=== PATIENT | female | born 1940 | race African-American/Black ===

== ENCOUNTER → 2017-06-26 | Outpatient (CLI) | payer MEDICARE | END | disposition home or self-care (01) | LOC: LABWHC1 17:31 | PROVIDERS: ATTEND Physician Assistant | DX: R00.1 Bradycardia, unspecified (principal); R07.9 Chest pain, unspecified | CPT/HCPCS: 36415; 93005 ==

== ENCOUNTER → 2017-12-17 | Outpatient (CLI) | payer MEDICARE ==
[2017-12-17 19:14] LABS: T4, Free (Free Thyroxine) 1.93 ng/dL (0.78-2.19)
[2017-12-18 01:27] LABS: Protein, Total 7.5 g/dL (6.2-8.2)
[2017-12-18 10:02] LABS: Lyme IgG/IgM 0.2 Index
[2017-12-18 12:29] LABS: Albumin 4.67 g/dL (3.80-4.90); Gamma Globulin 1.12 g/dL (0.70-1.50)
[2017-12-18 17:07] LABS: Hemoglobin A1C 5.4 % (4.0-6.0)
== END | disposition home or self-care (01) ==
LOC: LABMAIN 17:35
PROVIDERS: ATTEND Psychiatry & Neurology Neurology
DX: M19.90 Unspecified osteoarthritis, unspecified site (principal); R53.82 Chronic fatigue, unspecified; G62.9 Polyneuropathy, unspecified; E07.9 Disorder of thyroid, unspecified
CPT/HCPCS: 36415; 82607; 82747; 83036; 84165; 84207; 84439; 84443; 85652; 86334; 86618

== ENCOUNTER → 2018-11-19 | Outpatient (CLI) | payer MEDICARE ==
[2018-11-19 17:45] LABS: Basophils # (A) 0.1 k/uL (0-0.2); Basophils % (A) 1 %; Eosinophils # (A) 0.1 k/uL (0-0.7); Eosinophils % (A) 1 %; HCT 42.9 % (34.0-46.0); HGB 14.5 gm/dL (11.4-16.0); Lymphocytes % (A) 19 %; MCH 30.3 pg (25.0-35.0); MCHC 33.7 g/dL (31.0-37.0); MCV 89.7 fL (80.0-100.0); Mean Platelet Volume 9.3; Monocytes # (A) 0.2 k/uL (0-1.0); Monocytes % (A) 4 %; Neutrophils # (A) 3.8 k/uL (1.3-7.7); Neutrophils % (A) 73 %; Platelet Count 283 k/uL (150-450); RBC 4.78 m/uL (3.80-5.40); WBC 5.2 k/uL (3.8-10.6)
[2018-11-19 18:05] LABS: Appearance,Urine Clear (Clear); Bilirubin,Urine Negative (Negative); Blood,Urine Negative (Negative); Color,Urine Light Yellow; Glucose,Urine (UA) Negative (Negative); Ketones,Urine Negative (Negative); Leukocyte Esterase,Urine Negative (Negative); Nitrite,Urine Negative (Negative); Protein,Urine Negative (Negative); Specific Gravity,Urine 1.009 (1.001-1.035); Urobilinogen,Urine <2.0 mg/dL (<2.0)
[2018-11-19 23:39] LABS: Iron Saturation 15.08 (12.00-45.00)
[2018-11-19 23:51] LABS: African American GFR (CKD) 50.8 (60.0-200.0); Albumin 4.6 g/dL (3.80-4.90); Anion Gap 9.2 mmol/L (4.00-12.00); BUN/Creat Ratio 16.67 Ratio (12.00-20.00); Calcium 9.6 mg/dL (8.7-10.3); Carbon Dioxide 28.8 mmol/L (21.6-31.8); Magnesium 2.2 mg/dL (1.5-2.4); Parathyroid Hormone Intact 110.5 pg/mL (14.0-72.0); Phosphorus 4.5 mg/dL (2.4-5.1); Potassium 3.9 mmol/L (3.5-5.5); Uric Acid 5.9 mg/dL (2.9-7.7)
[2018-11-20 00:13] LABS: Creatinine,Urine Random 57.9 mg/dL
[2018-11-20 00:28] LABS: Total Protein,Urine Random 7.5 mg/dL (0.0-13.5)
== END | disposition home or self-care (01) ==
LOC: LABWHC1 17:24
PROVIDERS: ATTEND Internal Medicine
DX: N39.0 Urinary tract infection, site not specified (principal); M10.9 Gout, unspecified; N18.3 Chronic kidney disease, stage 3 (moderate); D63.1 Anemia in chronic kidney disease; R80.9 Proteinuria, unspecified; N25.81 Secondary hyperparathyroidism of renal origin
CPT/HCPCS: 36415; 80048; 81003; 82040; 82570; 82728; 83540; 83550; 83735; 83970; 84100; 84156; 84550; 85025

== ENCOUNTER → 2019-02-09 | Outpatient (CLI) | payer MEDICARE ==
--- NOTE | 2019-02-10 12:42 | MR ---
MR brain without contrast HISTORY: Syncope, nutritional imbalance Multiplanar multisequence imaging through the brain Correlation to prior brain MRI January 01, 2015 Periventricular confluent and scattered hyperintensities on inversion recovery T2-weighted sequences are again noted and show similar appearance and distribution, similar number. The pericallosal hyperi ntensities have increased in size, right frontal lesion shows a measurement approximately 7.5 mm on a xial image 22 and measured approximately 5.5 mm on prior exam. Left frontal lesion measures approxima tely 6.6 mm currently and on prior exam measured only approximately 5 mm. There are some sub and juxt acortical lesions which also appears somewhat more conspicuous. There is cortical atrophy which is li abdi age-related. Motion is present on the exam. Inflammatory changes present within the temporal bon e on the left, mastoids on the right as on prior exam. No hemorrhage or hydrocephalus. There are norm al vascular flow voids. Mild inflammatory change present in the ethmoid air cells. Orbits show symmet bryson appearance. Cerebellopontine angles, corpus callosum, cervical medullary junction are unremarkabl e. There is a partially empty sella as on prior exam. IMPRESSION: Age-related atrophy and chronic small vessel ischemia. Some progression in white matter d emyelination as described.
== END | disposition home or self-care (01) ==
LOC: RADMRIMAIN 15:11
PROVIDERS: ATTEND Psychiatry & Neurology Neurology
DX: G31.1 Senile degeneration of brain, not elsewhere classified (principal); G37.9 Demyelinating disease of central nervous system, unspecified; I67.82 Cerebral ischemia
CPT/HCPCS: 70551

== ENCOUNTER → 2019-05-04 | Outpatient (CLI) | payer MEDICARE | END | disposition home or self-care (01) | LOC: NEUROMAIN 08:58 | PROVIDERS: ATTEND Psychiatry & Neurology Neurology | DX: R42 Dizziness and giddiness (principal) | CPT/HCPCS: 92537; 92540 ==

== ENCOUNTER → 2019-05-24 | Outpatient (CLI) | payer MEDICARE ==
[2019-05-24 14:42] LABS: Basophils # (A) 0.1 k/uL (0-0.2); Basophils % (A) 1 %; Eosinophils # (A) 0.1 k/uL (0-0.7); Eosinophils % (A) 1 %; HCT 40.4 % (34.0-46.0); HGB 12.3 gm/dL (11.4-16.0); Lymphocytes # (A) 0.9 k/uL (1.0-4.8); Lymphocytes % (A) 14 %; MCH 30.6 pg (25.0-35.0); MCHC 30.5 g/dL (31.0-37.0); MCV 100.3 fL (80.0-100.0); Macrocytosis Slight; Mean Platelet Volume 7.5; Monocytes # (A) 0.2 k/uL (0-1.0); Monocytes % (A) 4 %; Neutrophils % (A) 79 %; Platelet Count 388 k/uL (150-450); RBC 4.02 m/uL (3.80-5.40); RDW 13.9 % (11.5-15.5); WBC 6.3 k/uL (3.8-10.6)
[2019-05-24 15:08] LABS: Appearance,Urine Cloudy (Clear); Bacteria,Urine Many /hpf; Bilirubin,Urine Negative (Negative); Blood,Urine Trace (Negative); Color,Urine Yellow; Glucose,Urine (UA) Negative (Negative); Ketones,Urine Negative (Negative); Leukocyte Esterase,Urine Large (Negative); Mucus,Urine Rare /hpf; Nitrite,Urine Negative (Negative); Protein,Urine Trace (Negative); RBC,Urine 7 /hpf (0-5); Specific Gravity,Urine 1.007 (1.001-1.035); Squamous Epithelial Cell,Urine <1 /hpf (0-4); Urobilinogen,Urine <2.0 mg/dL (<2.0); WBC,Urine >182 /hpf (0-5)
[2019-05-24 19:43] LABS: African American GFR (CKD) 33.4 (60.0-200.0); Albumin 4.1 g/dL (3.80-4.90); Anion Gap 8.5 mmol/L (4.00-12.00); BUN/Creat Ratio 12.35 Ratio (12.00-20.00); Carbon Dioxide 27.5 mmol/L (21.6-31.8); Phosphorus 3.5 mg/dL (2.4-5.1); Potassium 4.1 mmol/L (3.5-5.5); Uric Acid 6.4 mg/dL (2.9-7.7)
[2019-05-24 19:48] LABS: Ferritin 195.7 ng/mL (10.0-291.0); Vitamin D 25 Hydroxy 38.6 ng/mL (30.0-100.0)
[2019-05-24 22:35] LABS: Creatinine,Urine Random 56.8 mg/dL
[2019-05-24 22:39] LABS: Total Protein,Urine Random 21.8 mg/dL (0.0-13.5)
== END | disposition home or self-care (01) ==
LOC: LABWHC1 13:53
PROVIDERS: ATTEND Internal Medicine Nephrology
DX: N18.3 Chronic kidney disease, stage 3 (moderate) (principal)
CPT/HCPCS: 36415; 80048; 81001; 82040; 82306; 82570; 82728; 83540; 83550; 83735; 83970; 84100; 84156; 84550; 85025

== ENCOUNTER → 2019-07-07 | Outpatient (CLI) | payer MEDICARE ==
[2019-07-08 01:21] LABS: African American GFR (CKD) 38.5 (60.0-200.0); Anion Gap 7.4 mmol/L (4.00-12.00); BUN/Creat Ratio 15.33 Ratio (12.00-20.00); Calcium 9.3 mg/dL (8.7-10.3); Carbon Dioxide 29.6 mmol/L (21.6-31.8); Non-African American GFR(CKD) 33.3 (60.0-200.0); Potassium 3.8 mmol/L (3.5-5.5)
== END | disposition home or self-care (01) ==
LOC: LABWHC1 16:10
PROVIDERS: ATTEND Internal Medicine Nephrology
DX: N18.3 Chronic kidney disease, stage 3 (moderate) (principal)
CPT/HCPCS: 36415; 80048

== ENCOUNTER → 2019-07-30 | Outpatient (CLI) | payer MEDICARE | END | disposition home or self-care (01) | LOC: LABWHC1 12:00 | PROVIDERS: ATTEND Internal Medicine | DX: Z53.9 Procedure and treatment not carried out, unspecified reason (principal) | CPT/HCPCS: 36415; 80053; 84439; 84443 ==

== ENCOUNTER → 2019-08-03 | Outpatient (CLI) | payer MEDICARE ==
[2019-08-04 00:20] LABS: T4, Free (Free Thyroxine) 1.5 ng/dL (0.80-1.80)
[2019-08-04 01:03] LABS: African American GFR (CKD) 35.7 (60.0-200.0); Albumin 4.2 g/dL (3.80-4.90); Anion Gap 5.7 mmol/L (4.00-12.00); BUN/Creat Ratio 13.75 Ratio (12.00-20.00); Carbon Dioxide 29.3 mmol/L (21.6-31.8); Globulin 2.1 g/dL (1.6-3.3); Non-African American GFR(CKD) 30.8 (60.0-200.0); Potassium 4.2 mmol/L (3.5-5.5); Total Bilirubin 0.5 mg/dL (0.3-1.2); Total Protein 6.3 g/dL (6.2-8.2)
== END | disposition home or self-care (01) ==
LOC: LABWHC1 17:23
PROVIDERS: ATTEND Internal Medicine
DX: I10 Essential (primary) hypertension (principal)
CPT/HCPCS: 36415; 80053; 84439; 84443

== ENCOUNTER → 2019-08-15 | Outpatient (CLI) | payer MEDICARE ==
[2019-08-16 00:28] LABS: African American GFR (CKD) 38.5 (60.0-200.0); Anion Gap 6.4 mmol/L (4.00-12.00); BUN/Creat Ratio 13.33 Ratio (12.00-20.00); Calcium 9.3 mg/dL (8.7-10.3); Carbon Dioxide 29.6 mmol/L (21.6-31.8); Non-African American GFR(CKD) 33.3 (60.0-200.0); Potassium 4.1 mmol/L (3.5-5.5)
== END | disposition home or self-care (01) ==
LOC: LABWHC1 17:15
PROVIDERS: ATTEND Internal Medicine
DX: I10 Essential (primary) hypertension (principal)
CPT/HCPCS: 36415; 80048

== ENCOUNTER → 2019-09-05 | Outpatient (CLI) | payer MEDICARE ==
[2019-09-05 17:32] LABS: Basophils # (A) 0.1 k/uL (0-0.2); Basophils % (A) 1 %; Eosinophils # (A) 0.1 k/uL (0-0.7); Eosinophils % (A) 3 %; HCT 41.3 % (34.0-46.0); HGB 13.1 gm/dL (11.4-16.0); Lymphocytes # (A) 1.4 k/uL (1.0-4.8); Lymphocytes % (A) 26 %; MCHC 31.7 g/dL (31.0-37.0); MCV 97.8 fL (80.0-100.0); Mean Platelet Volume 9.1; Monocytes # (A) 0.3 k/uL (0-1.0); Monocytes % (A) 5 %; Neutrophils # (A) 3.3 k/uL (1.3-7.7); Neutrophils % (A) 63 %; Platelet Count 194 k/uL (150-450); RBC 4.22 m/uL (3.80-5.40); RDW 13.9 % (11.5-15.5); WBC 5.3 k/uL (3.8-10.6)
[2019-09-05 17:35] LABS: Appearance,Urine Clear (Clear); Bilirubin,Urine Negative (Negative); Blood,Urine Negative (Negative); Color,Urine Yellow; Glucose,Urine (UA) Negative (Negative); Ketones,Urine Negative (Negative); Leukocyte Esterase,Urine Trace (Negative); Nitrite,Urine Negative (Negative); PH, Urine 6.5 (5.0-8.0); Protein,Urine Negative (Negative); RBC,Urine 1 /hpf (0-5); Specific Gravity,Urine 1.006 (1.001-1.035); Urobilinogen,Urine <2.0 mg/dL (<2.0); WBC,Urine 1 /hpf (0-5)
[2019-09-06 01:26] LABS: % Iron Saturation 21.3 (12.00-45.00); African American GFR (CKD) 33.1 (60.0-200.0); Albumin 4.3 g/dL (3.80-4.90); Anion Gap 2.9 mmol/L (4.00-12.00); BUN/Creat Ratio 15.29 Ratio (12.00-20.00); Calcium 9.3 mg/dL (8.7-10.3); Carbon Dioxide 31.1 mmol/L (21.6-31.8); Magnesium 2.2 mg/dL (1.5-2.4); Non-African American GFR(CKD) 28.6 (60.0-200.0); Phosphorus 4.2 mg/dL (2.4-5.1); Potassium 4.5 mmol/L (3.5-5.5); Uric Acid 5.9 mg/dL (2.9-7.7)
[2019-09-06 01:34] LABS: Ferritin 96.4 ng/mL (10.0-291.0)
[2019-09-06 03:00] LABS: Creatinine,Urine Random 59.1 mg/dL
[2019-09-06 03:20] LABS: Total Protein,Urine Random 8.1 mg/dL (0.0-13.5)
== END | disposition home or self-care (01) ==
LOC: LABWHC1 16:48
PROVIDERS: ATTEND Internal Medicine Nephrology
DX: N18.3 Chronic kidney disease, stage 3 (moderate) (principal); D63.1 Anemia in chronic kidney disease; N25.81 Secondary hyperparathyroidism of renal origin; N39.0 Urinary tract infection, site not specified
CPT/HCPCS: 36415; 80048; 81001; 82040; 82570; 82728; 83540; 83550; 83735; 83970; 84100; 84156; 84550; 85025; 87086

== ENCOUNTER → 2019-09-27 | Outpatient (CLI) | payer MEDICARE ==
--- NOTE | 2019-09-29 19:46 | CT ---
EXAMINATION TYPE: CT chest wo con DATE OF EXAM: 09/27/2019 COMPARISON: None HISTORY: Thoracic aortic aneurysm. CT DLP: 213.6 mGycm. Automated Exposure Control for Dose Reduction was Utilized. TECHNIQUE: CT scan of the thorax is performed without IV contrast. FINDINGS: Lack of intravenous contrast could compromise sensitivity. Patient refused intravenous cont rast. LUNGS: The lungs are grossly clear, there is no concerning parenchymal mass or nodule identified. Ca lcified lung nodule in the right upper lobe on axial image 13 is noted. Bandlike area of increased at tenuation at the left lung base likely represents atelectasis or scarring. There is no pleural effusi on or pneumothorax seen. The tracheobronchial tree is patent. Pulmonary artery is enlarged. There ar e mild coronary calcifications present. MEDIASTINUM: Lack of IV contrast is noted to limit evaluation for mediastinal and especially hilar ad enopathy. There are no definitive greater than 1 cm hilar or mediastinal lymph nodes. No cardiomega ly or pericardial effusion is seen. Aorta shows a measurement of 4.5 cm at the ascending aspect. Proximal descending aorta measures 3.1 c m. At the level of the aortic hiatus the aorta measures 3 cm. 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 Evaluation is limited. Thoracic spondylosis is noted. IMPRESSION: Thoracic aortic aneurysm. Coronary artery disease. 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 Noncon trast exam. Probable old granulomatous disease. Additional findings above.
== END | disposition home or self-care (01) ==
LOC: RADCTMAIN 16:44
PROVIDERS: ATTEND Family Medicine
DX: I71.2 Thoracic aortic aneurysm, without rupture (principal); I25.10 Atherosclerotic heart disease of native coronary artery without angina pectoris
CPT/HCPCS: 71250

== ENCOUNTER → 2020-02-03 | Outpatient (CLI) | payer MEDICARE ==
[2020-02-03 15:13] LABS: Basophils # (A) 0.1 k/uL (0-0.2); Basophils % (A) 1 %; Eosinophils # (A) 0.1 k/uL (0-0.7); Eosinophils % (A) 3 %; HCT 42.8 % (34.0-46.0); HGB 13.8 gm/dL (11.4-16.0); Lymphocytes # (A) 1.3 k/uL (1.0-4.8); Lymphocytes % (A) 27 %; MCH 32.2 pg (25.0-35.0); MCHC 32.3 g/dL (31.0-37.0); MCV 99.5 fL (80.0-100.0); Mean Platelet Volume 9.1; Monocytes # (A) 0.2 k/uL (0-1.0); Monocytes % (A) 4 %; Neutrophils # (A) 3.1 k/uL (1.3-7.7); Neutrophils % (A) 63 %; Platelet Count 195 k/uL (150-450); RDW 13.4 % (11.5-15.5); WBC 4.9 k/uL (3.8-10.6)
[2020-02-03 15:20] LABS: Appearance,Urine Clear (Clear); Bilirubin,Urine Negative (Negative); Blood,Urine Negative (Negative); Color,Urine Yellow; Glucose,Urine (UA) Negative (Negative); Ketones,Urine Negative (Negative); Leukocyte Esterase,Urine Negative (Negative); Nitrite,Urine Negative (Negative); PH, Urine 5.5 (5.0-8.0); Protein,Urine Negative (Negative); Specific Gravity,Urine 1.008 (1.001-1.035); Urobilinogen,Urine <2.0 mg/dL (<2.0)
[2020-02-03 15:29] LABS: Protein/Creatinine Ratio,Urine 0.131
[2020-02-03 18:31] LABS: Protein, Total 6.9 g/dL (6.2-8.2)
[2020-02-03 18:36] LABS: % Iron Saturation 27.83 (12.00-45.00); African American GFR (CKD) 33.1 (60.0-200.0); Albumin 4.4 g/dL (3.80-4.90); Anion Gap 5.1 mmol/L (4.00-12.00); BUN/Creat Ratio 14.12 Ratio (12.00-20.00); Calcium 9.3 mg/dL (8.7-10.3); Carbon Dioxide 31.9 mmol/L (21.6-31.8); Magnesium 2.3 mg/dL (1.5-2.4); Non-African American GFR(CKD) 28.6 (60.0-200.0); Phosphorus 4.2 mg/dL (2.4-5.1); Potassium 3.8 mmol/L (3.5-5.5); Uric Acid 5.2 mg/dL (2.9-7.7)
[2020-02-03 18:44] LABS: Ferritin 75.6 ng/mL (10.0-291.0)
[2020-02-06 13:41] LABS: Albumin 4.07 g/dL (3.80-4.90); Gamma Globulin 1.14 g/dL (0.70-1.50)
== END | disposition home or self-care (01) ==
LOC: LABWHC1 14:42
PROVIDERS: ATTEND Internal Medicine Nephrology
DX: N25.81 Secondary hyperparathyroidism of renal origin (principal); E55.9 Vitamin D deficiency, unspecified; D63.1 Anemia in chronic kidney disease; N18.3 Chronic kidney disease, stage 3 (moderate)
CPT/HCPCS: 36415; 80048; 81003; 82040; 82306; 82570; 82728; 83540; 83550; 83735; 83970; 84100; 84156; 84165; 84550; 85025; 86335

== ENCOUNTER → 2020-06-05 | Outpatient (CLI) | payer MEDICARE ==
[2020-06-05 14:51] LABS: Basophils # (A) 0.1 k/uL (0-0.2); Basophils % (A) 1 %; Eosinophils # (A) 0.2 k/uL (0-0.7); Eosinophils % (A) 3 %; HCT 41.2 % (34.0-46.0); HGB 13.2 gm/dL (11.4-16.0); Lymphocytes # (A) 1.5 k/uL (1.0-4.8); Lymphocytes % (A) 24 %; MCH 32.2 pg (25.0-35.0); MCV 100.5 fL (80.0-100.0); Mean Platelet Volume 8.6; Monocytes # (A) 0.3 k/uL (0-1.0); Monocytes % (A) 5 %; Neutrophils # (A) 4.2 k/uL (1.3-7.7); Neutrophils % (A) 66 %; Platelet Count 172 k/uL (150-450); RDW 13.6 % (11.5-15.5); WBC 6.3 k/uL (3.8-10.6)
[2020-06-05 14:54] LABS: Protein/Creatinine Ratio,Urine 0.444
[2020-06-05 17:55] LABS: Appearance,Urine Clear (Clear); Bilirubin,Urine Negative (Negative); Blood,Urine Negative (Negative); Color,Urine Light Yellow; Glucose,Urine (UA) Negative (Negative); Ketones,Urine Negative (Negative); Leukocyte Esterase,Urine Negative (Negative); Nitrite,Urine Negative (Negative); PH, Urine 5.5 (5.0-8.0); Protein,Urine Negative (Negative); Specific Gravity,Urine 1.004 (1.001-1.035); Urobilinogen,Urine <2.0 mg/dL (<2.0)
[2020-06-05 20:15] LABS: % Iron Saturation 31.35 (12.00-45.00); African American GFR (CKD) 41.9 (60.0-200.0); Albumin 4.1 g/dL (3.80-4.90); Anion Gap 7.2 mmol/L (4.00-12.00); BUN/Creat Ratio 17.86 Ratio (12.00-20.00); Calcium 9.8 mg/dL (8.7-10.3); Carbon Dioxide 27.8 mmol/L (21.6-31.8); Magnesium 2.1 mg/dL (1.5-2.4); Non-African American GFR(CKD) 36.2 (60.0-200.0); Phosphorus 4.2 mg/dL (2.4-5.1); Potassium 4.1 mmol/L (3.5-5.5); Uric Acid 4.8 mg/dL (2.9-7.7)
[2020-06-05 20:23] LABS: Ferritin 75.3 ng/mL (10.0-291.0)
== END | disposition home or self-care (01) ==
LOC: LABWHC1 12:15
PROVIDERS: ATTEND Internal Medicine Nephrology
DX: N18.30 Chronic kidney disease, stage 3 unspecified (principal)
CPT/HCPCS: 36415; 80048; 81003; 82040; 82306; 82570; 82728; 83540; 83550; 83735; 83970; 84100; 84156; 84550; 85025

== ENCOUNTER → 2020-06-22 | Outpatient (CLI) | payer MEDICARE ==
--- NOTE | 2020-06-22 18:57 | ECHOF ---
Referral Reason:I71.2 thoracic aortic aneurysm MEASUREMENTS -------- HEIGHT: 167.6 cm WEIGHT: 71.7 kg BP: RVIDd: 2.0 cm (< 3.3) IVSd: 0.8 cm (0.6 - 1.1) LVIDd: 5.1 cm (3.9 - 5.3) LVPWd: 0.9 cm (0.6 - 1.1) IVSs: 1.5 cm LVIDs: 2.2 cm LVPWs: 1.9 cm LAESV Index (A-L): 30.88 ml/m Ao Diam: 3.0 cm (2.0 - 3.7) AV Cusp: 2.0 cm (1.5 - 2.6) LA Diam: 3.5 cm (2.7 - 3.8) MV EXCURSION: 13.189 mm (> 18.000) MV EF SLOPE: 71 mm/s (70 - 150) EPSS: 0.3 cm MV E Noman: 0.89 m/s MV DecT: 177 ms MV A Noman: 0.42 m/s MV E/A Ratio: 2.13 RAP: 5.00 mmHg RVSP: 10.25 mmHg FINDINGS -------- This was a technically good study. The left ventricular size is normal. Left ventricular wall thickness is normal. Overall left vent ricular systolic function is normal with, an EF between 55 - 60 %. The diastolic filling pattern is normal for the age of the patient 9.98. The right ventricle is normal in size. LA is midly dilated 29-33ml/m2. The right atrial size is normal. Interatrial and interventricular septum intact. The aortic valve is trileaflet and appears structurally normal. The mitral valve is normal. Mild mitral regurgitation is present. The tricuspid valve appears structurally normal. Mild tricuspid regurgitation present. Right vent ricular systolic pressure is normal at < 35 mmHg. There is no pulmonic regurgitation present. The aortic root size is normal. Normal inferior vena cava with normal inspiratory collapse consistent with estimated right atrial pre ssure of 5 mmHg. There is no pericardial effusion. CONCLUSIONS -------- 1. The left ventricular size is normal. 2. Left ventricular wall thickness is normal. 3. Overall left ventricular systolic function is normal with, an EF between 55 - 60 %. 4. The diastolic filling pattern is normal for the age of the patient 9.98 5. LA is midly dilated 29-33ml/m2. 6. Mild mitral regurgitation is present. 7. Mild tricuspid regurgitation present. 8. There is no pericardial effusion. [employer] MANAGER: Julia Torres RDCS
== END | disposition home or self-care (01) ==
LOC: RADECHMAIN 15:12
PROVIDERS: ATTEND Family Medicine
DX: I08.1 Rheumatic disorders of both mitral and tricuspid valves (principal); I71.2 Thoracic aortic aneurysm, without rupture
CPT/HCPCS: 93306

== ENCOUNTER → 2020-08-15 | Outpatient (CLI) | payer MEDICARE ==
--- NOTE | 2020-08-15 15:16 | XR ---
EXAMINATION TYPE: XR lumbar spine 2 or 3V DATE OF EXAM: 08/15/2020 Comparison: Correlation CT chest 09/27/2019 Clinical History: 80-year-old female M54.5 low back pain Findings: Degenerated levoconvex curvature of the lumbar spine. Calcifications in the right mid abdomen could r epresent gallstones or renal calculi measuring up to 1.8 cm. Moderate to large stool burden. Advanced hypertrophic facet arthropathy throughout the lumbar spine with preserved alignment. No vert ebral compression collapse. Moderate to advanced degenerative disc disease L5-S1 and mild at addition al levels. Impression: 1. Degenerated levoconvex scoliosis. 2. Advanced hypertrophic facet arthropathy but no malalignment. 3. No vertebral compression collapse. 4. Moderate to advanced degenerative disc disease L5-S1 and mild throughout the remainder of the lumb ar spine. 5. Eggshell calcifications in the right mid abdomen measuring up to 1.8 cm corresponding to possible renal artery aneurysms when correlating with prior CT chest.
== END | disposition home or self-care (01) ==
LOC: RADXRMAIN 13:19
PROVIDERS: ATTEND Family Medicine
DX: M51.37 Other intervertebral disc degeneration, lumbosacral region (principal); M47.816 Spondylosis without myelopathy or radiculopathy, lumbar region; M41.86 Other forms of scoliosis, lumbar region
CPT/HCPCS: 72100

== ENCOUNTER → 2021-02-07 | Outpatient (CLI) | payer MEDICARE ==
--- NOTE | 2021-02-07 15:36 | BD ---
EXAMINATION TYPE: Axial Bone Density DATE OF EXAM: 02/07/2021 COMPARISON: NONE CLINICAL HISTORY: Height: 64.5 Weight: 159.4 FRAX RISK QUESTIONS: Alcohol (3 or more units per day): no Family History (Parent hip fracture): no Glucocorticoids (More than 3mos): no (Ex: prednisone, prednisolone, methylprednisolone, dexamethasone, and hydrocortisone). History of Fracture in Adulthood: no Secondary Osteoporosis: 1. Type 1 Diabetes: no 2. Hyperthyroidism: no 3. Menopause before 45: no 4. Malnutrition: no 5. Chronic liver disease: no Rheumatoid Arthritis: no Current Tobacco Use: no RISK FACTORS HISTORY OF: Surgery to Spine/Hip(right/left)/Wrist (right/left): no Family History of Osteoporosis: no Diet low in dairy products/other sources of calcium: yes Postmenopausal woman: age 57 Lost more than 2 inches in height since high school: no MEDICATIONS: Parkinson meds, blood pressure meds, cholesterol meds Thyroid Medications: thyroid meds How Lon years Additional History: EXAM MEASUREMENTS: Bone mineral densitometry was performed using the [employer]. Bone mineral density as measured about the Lumbar spine is: ----- L1-L4(G/cm2): 1.046 T Score Values are as follows: ----- L2: -1.9 ----- L3: -1.0 ----- L4: -0.6 ----- L1-L4: -1.1 Bone mineral density : baseline Bone mineral density about the R hip (g/cm2): 0.806 Bone mineral density about the L hip (g/cm2): 0.759 T Score values are as follows: -----R Neck: -1.7 -----L Neck: -2.0 -----R Total: -1.8 -----L Total: -1.6 Bone mineral density : baseline IMPRESSION: Osteopenia. NOTE: T-SCORE=SD OF THE YOUNG ADULT MEAN.
--- NOTE | 2021-02-09 18:54 | CT ---
EXAMINATION TYPE: CT chest wo con DATE OF EXAM: 02/07/2021 COMPARISON: 09/27/2019 HISTORY: 80-year-old female Thoracic aortic aneurysm without rupture. TECHNIQUE: Contiguous axial scanning of the chest without IV contrast. Coronal and sagittal reconstru ctions performed. CT DLP: 371 mGycm Automated exposure control for dose reduction was used. FINDINGS: Heart upper limits of normal in size with trace anterior basilar pericardial fluid. Some mild scatter ed RCA and LAD coronary calcifications are present. Aortic root normal caliber at 3.1 cm, unchanged. Mild aneurysm ascending aorta at 4.1 cm is unchanged. Proximal arch measures 4.0 cm, unchanged. Conventional orifice of branching anatomy. Upper descending thoracic aorta borderline ectatic at 3.0 cm, unchanged. Mid and lower descending thoracic aorta measure up to 2.9 cm, unchanged. 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 The larger one appears minim ally increased in size versus 1.4 cm, previously. The large caliber to the main right and left pulmonary arteries and 2.9 and 2.8 cm, respectively, sug gesting underlying pulmonary hypertension. No thoracic lymphadenopathy by CT size criteria. Stable 5 mm posterior right upper lung pulmonary nodule suggesting a benign etiology. Some strandy at electasis at the left base. No consolidation or pleural effusion. Visualized upper abdomen otherwise shows moderate stool in the splenic flexure of the colon. Possible mild right-sided pelvicaliectasis. [facility] within the mid to lower thoracic spine. Mild degenerative disc disease. Slight dextroconvex curv ature of the thoracic spine may be positional. IMPRESSION: 1. STABLE MILD ANEURYSM ASCENDING AORTA 4.1 CM AND BORDERLINE ECTASIA UPPER DESCENDING THORACIC AORTA AT 3.0 CM. 2. THERE ARE 2 RIGHT-SIDED RENAL ARTERY ANEURYSMS MEASURING 1.6 AND 0.8 CM. THE LARGER OF THESE APPEA RS MINIMALLY INCREASED IN SIZE VERSUS 1.4 CM, PREVIOUSLY. 3. CORRELATE FOR POSSIBLE UNDERLYING PULMONARY ARTERIAL HYPERTENSION. 4. PARTIAL VISUALIZATION OF THE RIGHT KIDNEY; POSSIBLE UNDERLYING RIGHT-SIDED PELVICALIECTASIS/MILD H YDRONEPHROSIS. CORRELATE FOR ANY RIGHT-SIDED RENAL COLIC SYMPTOMS. RENAL ULTRASOUND IF CLINICALLY IND ICATED.
== END | disposition home or self-care (01) ==
LOC: RADBDWWP 14:25
PROVIDERS: ATTEND Family Medicine
DX: Z13.820 Encounter for screening for osteoporosis (principal); M85.89 Other specified disorders of bone density and structure, multiple sites; Z78.0 Asymptomatic menopausal state; I71.2 Thoracic aortic aneurysm, without rupture
CPT/HCPCS: 71250; 77080

== ENCOUNTER → 2021-02-07 | Outpatient (CLI) | payer MEDICARE ==
--- NOTE | 2021-02-07 15:34 | US ---
EXAMINATION TYPE: US carotid duplex BILAT DATE OF EXAM: 02/07/2021 COMPARISON: NONE CLINICAL HISTORY: R42 DIZZINESS,I65.29 OCCLUSIVE DISEASE. Dizziness EXAM MEASUREMENTS: RIGHT: Peak Systolic Velocity (PSV) cm/sec ----- Right CCA: 58.1 ----- Right ICA: 57.4 ----- Right ECA: 58.1 ICA/CCA ratio: 1.0 RIGHT: End Diastole cm/sec ----- Right CCA: 13.6 ----- Right ICA: 13.2 ----- Right ECA: 0.0 LEFT: Peak Systolic Velocity (PSV) cm/sec ----- Left CCA: 57.4 ----- Left ICA: 100.7 ----- Left ECA: 104.3 ICA/CCA ratio: 1.8 LEFT: End Diastole cm/sec ----- Left CCA: 16.8 ----- Left ICA: 35.8 ----- Left ECA: 0.0 VERTEBRALS (direction of flow): Right Vertebral: Antegrade Left Vertebral: Antegrade Rhythm: Normal No significant stenosis seen IMPRESSION: No sonographic evidence for hemodynamically significant stenosis in the bilateral carotid arteries. Criteria for Assigning % of Stenosis / Diameter reduction (Estimation based on the indirect measurements of the internal carotid artery velocities (ICA PSV). 1. Normal (no stenosis)=ICA PSV < 125 cm/s: ratio < 2.0: ICA EDV<40 cm/s. 2. Less than 50% stenosis=ICA PSV < 125 cm/s: ratio < 2.0: ICA EDV<40 cm/s. 3. 50 to 69% stenosis=ICA PSV of 125 to 230 cm/s: ration 2.0 ? 4.0: ICA EDV 40-100 cm/s. 4. Greater than 70% stenosis to near occlusion= ICA PSV > 230 cm/s: ratio > 4.0: ICA EDV > 100 cm/s. 5. Near occlusion= ICA PSV velocities may be low or undetectable: variable ratio and ICA EDV. 6. Total occlusion=unable to detect flow.
== END | disposition home or self-care (01) ==
LOC: RADUSWWP 14:27
PROVIDERS: ATTEND Psychiatry & Neurology Neurology
DX: R42 Dizziness and giddiness (principal)
CPT/HCPCS: 93880

== ENCOUNTER → 2021-03-05 | Outpatient (CLI) | payer MEDICARE ==
[2021-03-05 16:31] LABS: Appearance,Urine Clear (Clear); Bilirubin,Urine Negative (Negative); Blood,Urine Negative (Negative); Color,Urine Light Yellow; Glucose,Urine (UA) Negative (Negative); Ketones,Urine Negative (Negative); Leukocyte Esterase,Urine Negative (Negative); Nitrite,Urine Negative (Negative); PH, Urine 5.5 (5.0-8.0); Protein,Urine Negative (Negative); Specific Gravity,Urine 1.005 (1.001-1.035); Urobilinogen,Urine <2.0 mg/dL (<2.0)
[2021-03-05 16:45] LABS: Creatinine,Urine Random 58.1 mg/dL; Protein/Creatinine Ratio,Urine 0.258
[2021-03-05 23:38] LABS: Basophils # (A) 0.04 X 10*3/uL (0.00-0.10); Basophils % (A) 0.6 %; Eosinophils # (A) 0.07 X 10*3/uL (0.04-0.35); HCT 42.2 % (37.2-46.3); HGB 13.5 g/dL (12.0-15.0); Lymphocytes # (A) 1.43 X 10*3/uL (0.90-5.00); MCH 31.9 pg (27.0-32.0); MCV 99.8 fL (80.0-97.0); Mean Platelet Volume 12.3 fL (9.5-12.2); Monocytes # (A) 0.44 X 10*3/uL (0.20-1.00); Monocytes % (A) 6.1 %; Neutrophils # (A) 5.16 X 10*3/uL (1.80-7.70); Platelet Count 212 X 10*3/uL (140-440); RBC 4.23 X 10*6/uL (4.10-5.20); RDW 13.7 % (11.5-14.5); WBC 7.16 X 10*3/uL (4.50-10.00)
[2021-03-06 04:50] LABS: % Iron Saturation 35.26 (12.00-45.00); African American GFR (CKD) 41.6 (60.0-200.0); Albumin 4.5 g/dL (3.80-4.90); Anion Gap 5.7 mmol/L (4.00-12.00); BUN/Creat Ratio 12.14 Ratio (12.00-20.00); Calcium 9.5 mg/dL (8.7-10.3); Carbon Dioxide 29.3 mmol/L (21.6-31.8); Magnesium 2.5 mg/dL (1.5-2.4); Non-African American GFR(CKD) 35.9 (60.0-200.0); Phosphorus 3.5 mg/dL (2.4-5.1); Potassium 3.6 mmol/L (3.5-5.5); Uric Acid 4.8 mg/dL (2.9-7.7)
[2021-03-06 05:00] LABS: Ferritin 54.7 ng/mL (10.0-291.0)
== END | disposition home or self-care (01) ==
LOC: LABWHC1 15:14
PROVIDERS: ATTEND Internal Medicine Nephrology
DX: Z13.820 Encounter for screening for osteoporosis (principal); N18.30 Chronic kidney disease, stage 3 unspecified; E55.9 Vitamin D deficiency, unspecified; N25.81 Secondary hyperparathyroidism of renal origin; M10.9 Gout, unspecified; N39.0 Urinary tract infection, site not specified; D64.9 Anemia, unspecified; R80.9 Proteinuria, unspecified
CPT/HCPCS: 36415; 80048; 81003; 82040; 82306; 82570; 82728; 83540; 83550; 83735; 83970; 84100; 84156; 84550; 85025

== ENCOUNTER → 2021-05-30 | Outpatient (CLI) | payer MEDICARE ==
[~2021-05-30] MED LIST: DENOSUMAB 60 MG/ML 1 ML SYRINGE SQ NR
[2021-05-30 14:35] VITALS: BP 163/98; PULSE 79; RESP 16; TEMP 97.5
== END ==
LOC: PROCWHC3 14:16
PROVIDERS: ATTEND Family Medicine
DX: M81.0 Age-related osteoporosis without current pathological fracture (principal); Z88.0 Allergy status to penicillin
CPT/HCPCS: 96372; J0897

== ENCOUNTER → 2021-07-02 | Outpatient (CLI) | payer MEDICARE ==
[2021-07-02 17:55] LABS: Appearance,Urine Clear (Clear); Bilirubin,Urine Negative (Negative); Blood,Urine Negative (Negative); Color,Urine Yellow; Glucose,Urine (UA) Negative (Negative); Ketones,Urine Negative (Negative); Leukocyte Esterase,Urine Negative (Negative); Nitrite,Urine Negative (Negative); Protein,Urine Negative (Negative); Specific Gravity,Urine 1.006 (1.001-1.035); Urobilinogen,Urine <2.0 mg/dL (<2.0)
[2021-07-02 19:36] LABS: Creatinine,Urine Random 49.7 mg/dL; Protein/Creatinine Ratio,Urine 0.241
[2021-07-02 23:00] LABS: Basophils # (A) 0.04 X 10*3/uL (0.00-0.10); Basophils % (A) 0.8 %; Eosinophils # (A) 0.04 X 10*3/uL (0.04-0.35); Eosinophils % (A) 0.8 %; HCT 39.1 % (37.2-46.3); HGB 12.8 g/dL (12.0-15.0); Lymphocytes # (A) 1.14 X 10*3/uL (0.90-5.00); MCH 32.6 pg (27.0-32.0); MCHC 32.7 g/dL (32.0-37.0); MCV 99.5 fL (80.0-97.0); Mean Platelet Volume 11.9 fL (9.5-12.2); Monocytes # (A) 0.29 X 10*3/uL (0.20-1.00); Monocytes % (A) 6.1 %; Neutrophils # (A) 3.22 X 10*3/uL (1.80-7.70); Neutrophils % (A) 67.9 %; Platelet Count 236 X 10*3/uL (140-440); RBC 3.93 X 10*6/uL (4.10-5.20); RDW 14.3 % (11.5-14.5); WBC 4.75 X 10*3/uL (4.50-10.00)
[2021-07-03 04:54] LABS: % Iron Saturation 21.46 (12.00-45.00); African American GFR (CKD) 41.3 (60.0-200.0); Albumin 4.6 g/dL (3.8-4.9); Anion Gap 11.4 mmol/L (4.00-12.00); BUN/Creat Ratio 16.86 Ratio (12.00-20.00); Blood Urea Nitrogen 23.6 mg/dL (9.0-27.0); Calcium 9.2 mg/dL (8.7-10.3); Carbon Dioxide 24.6 mmol/L (21.6-31.8); Ferritin 67.3 ng/mL (10.0-291.0); Magnesium 2.2 mg/dL (1.5-2.4); Non-African American GFR(CKD) 35.6 (60.0-200.0); Potassium 3.7 mmol/L (3.5-5.5); Uric Acid 5.3 mg/dL (2.9-7.7)
== END | disposition home or self-care (01) ==
LOC: LABWHC1 16:23
PROVIDERS: ATTEND Internal Medicine Nephrology
DX: D64.9 Anemia, unspecified (principal); M10.9 Gout, unspecified; N39.0 Urinary tract infection, site not specified; N25.81 Secondary hyperparathyroidism of renal origin; R80.9 Proteinuria, unspecified
CPT/HCPCS: 36415; 80048; 81003; 82040; 82306; 82570; 82728; 83540; 83550; 83735; 83970; 84100; 84156; 84550; 85025

== ENCOUNTER → 2021-08-19 | Outpatient (CLI) | payer MEDICARE ==
[2021-08-19 17:23] LABS: Appearance,Urine Clear (Clear); Bilirubin,Urine Negative (Negative); Blood,Urine Negative (Negative); Color,Urine Yellow; Glucose,Urine (UA) Negative (Negative); Ketones,Urine Negative (Negative); Leukocyte Esterase,Urine Negative (Negative); Nitrite,Urine Negative (Negative); PH, Urine 6.5 (5.0-8.0); Protein,Urine Negative (Negative); Specific Gravity,Urine 1.003 (1.001-1.035); Urobilinogen,Urine <2.0 mg/dL (<2.0)
[2021-08-19 17:33] LABS: Creatinine,Urine Random 14.5 mg/dL; Protein/Creatinine Ratio,Urine 1.103
[2021-08-19 23:26] LABS: Basophils # (A) 0.04 X 10*3/uL (0.00-0.10); Basophils % (A) 0.6 %; Eosinophils # (A) 0.08 X 10*3/uL (0.04-0.35); Eosinophils % (A) 1.2 %; HCT 42.8 % (37.2-46.3); HGB 13.4 g/dL (12.0-15.0); Lymphocytes # (A) 1.16 X 10*3/uL (0.90-5.00); Lymphocytes % (A) 17.7 %; MCH 30.9 pg (27.0-32.0); MCHC 31.3 g/dL (32.0-37.0); MCV 98.8 fL (80.0-97.0); Mean Platelet Volume 12.2 fL (9.5-12.2); Monocytes % (A) 6.1 %; Neutrophils # (A) 4.84 X 10*3/uL (1.80-7.70); Neutrophils % (A) 74.1 %; Platelet Count 220 X 10*3/uL (140-440); RBC 4.33 X 10*6/uL (4.10-5.20); WBC 6.54 X 10*3/uL (4.50-10.00)
[2021-08-20 03:10] LABS: African American GFR (CKD) 45.2 (60.0-200.0); Albumin 4.8 g/dL (3.8-4.9); Anion Gap 15.7 mmol/L (10.00-18.00); BUN/Creat Ratio 17.69 Ratio (12.00-20.00); Calcium 8.9 mg/dL (8.7-10.3); Carbon Dioxide 22.3 mmol/L (20.0-27.5); Ferritin 61.4 ng/mL (10.0-291.0); Magnesium 2.2 mg/dL (1.5-2.4); Phosphorus 2.8 mg/dL (2.4-5.1); Potassium 3.4 mmol/L (3.5-5.5); Uric Acid 4.9 mg/dL (2.9-7.7)
[2021-08-20 03:11] LABS: % Iron Saturation 17.01 (12.00-45.00)
== END | disposition home or self-care (01) ==
LOC: LABWHC1 16:31
PROVIDERS: ATTEND Internal Medicine Nephrology
DX: N25.81 Secondary hyperparathyroidism of renal origin (principal); N18.32 Chronic kidney disease, stage 3b
CPT/HCPCS: 36415; 80048; 81003; 82040; 82306; 82570; 82728; 83540; 83550; 83735; 83970; 84100; 84156; 84550; 85025

== ENCOUNTER → 2021-09-13 | Outpatient (CLI) | payer MEDICARE | END | disposition home or self-care (01) | LOC: LABWHC1 16:23 | DX: E87.6 Hypokalemia (principal) | CPT/HCPCS: 36415; 84132 ==

== ENCOUNTER → 2021-10-11 | Outpatient (CLI) | payer MEDICARE ==
[2021-10-11 23:15] LABS: African American GFR (CKD) 41.3 (60.0-200.0); Anion Gap 10.6 mmol/L (10.00-18.00); BUN/Creat Ratio 17.14 Ratio (12.00-20.00); Calcium 9.8 mg/dL (8.7-10.3); Carbon Dioxide 26.4 mmol/L (20.0-27.5); Non-African American GFR(CKD) 35.6 (60.0-200.0)
== END | disposition home or self-care (01) ==
LOC: LABWHC1 16:15
PROVIDERS: ATTEND Internal Medicine
DX: I71.9 Aortic aneurysm of unspecified site, without rupture (principal)
CPT/HCPCS: 36415; 80048

== ENCOUNTER → 2021-12-18 | Outpatient (CLI) | payer MEDICARE ==
[2021-12-18 16:54] LABS: Creatinine,Urine Random 66.9 mg/dL; Protein/Creatinine Ratio,Urine 0.194
[2021-12-18 22:49] LABS: Basophils # (A) 0.06 X 10*3/uL (0.00-0.10); Basophils % (A) 1.5 %; Eosinophils # (A) 0.09 X 10*3/uL (0.04-0.35); Eosinophils % (A) 2.2 %; HCT 39.5 % (37.2-46.3); HGB 12.4 g/dL (12.0-15.0); Immature Grans, Automated 0 %; Lymphocytes % (A) 36.5 %; MCH 31.5 pg (27.0-32.0); MCHC 31.4 g/dL (32.0-37.0); MCV 100.3 fL (80.0-97.0); Mean Platelet Volume 12.3 fL (9.5-12.2); Monocytes # (A) 0.28 X 10*3/uL (0.20-1.00); Monocytes % (A) 6.8 %; NRBC Per 100 WBC 0 /100 WBCS (0.0-0.0); Neutrophils # (A) 2.18 X 10*3/uL (1.80-7.70); Platelet Count 239 X 10*3/uL (140-440); RBC 3.94 X 10*6/uL (4.10-5.20); RDW 14.2 % (11.5-14.5); WBC 4.11 X 10*3/uL (4.50-10.00)
[2021-12-18 23:23] LABS: Appearance,Urine Clear (Clear); Bacteria,Urine None Seen /HPF (None Seen); Bilirubin,Urine Negative (Negative); Blood,Urine Negative (Negative); Color,Urine Dark Yellow (Yellow); Ketones,Urine Negative (Negative); Nitrite,Urine Negative (Negative); PH, Urine 5.5 (5.0-8.0); Specific Gravity,Urine 1.009 (1.001-1.030); Urobilinogen,Urine 0.2 (0.2,1.0)
[2021-12-19 00:20] LABS: % Iron Saturation 29.92 (12.00-45.00); African American GFR (CKD) 33.6 (60.0-200.0); Anion Gap 13.1 mmol/L (10.00-18.00); BUN/Creat Ratio 13.86 Ratio (12.00-20.00); Calcium 8.9 mg/dL (8.7-10.3); Carbon Dioxide 24.7 mmol/L (20.0-27.5); Magnesium 2.5 mg/dL (1.5-2.4); Phosphorus 3.4 mg/dL (2.4-5.1); Potassium 3.8 mmol/L (3.5-5.5); Uric Acid 4.4 mg/dL (2.9-7.7)
[2021-12-19 04:07] LABS: Albumin 4.4 g/dL (3.8-4.9)
== END | disposition home or self-care (01) ==
LOC: LABWHC1 16:21
PROVIDERS: ATTEND Internal Medicine Nephrology
DX: N25.81 Secondary hyperparathyroidism of renal origin (principal); E55.9 Vitamin D deficiency, unspecified; M10.9 Gout, unspecified; N39.0 Urinary tract infection, site not specified; D64.9 Anemia, unspecified; N18.32 Chronic kidney disease, stage 3b; R80.9 Proteinuria, unspecified
CPT/HCPCS: 36415; 80048; 81001; 82040; 82306; 82570; 82728; 83540; 83550; 83735; 83970; 84100; 84156; 84550; 85025

== ENCOUNTER → 2022-01-30 | Outpatient (CLI) | payer MEDICARE ==
[2022-01-30 18:21] LABS: African American GFR (CKD) 32.7 (60.0-200.0); Anion Gap 11.1 mmol/L (10.00-18.00); Blood Urea Nitrogen 30.6 mg/dL (9.0-27.0); Calcium 9.5 mg/dL (8.7-10.3); Carbon Dioxide 26.9 mmol/L (20.0-27.5); Non-African American GFR(CKD) 28.2 (60.0-200.0); Potassium 4.2 mmol/L (3.5-5.5)
== END | disposition home or self-care (01) ==
LOC: LABWHC1 12:27
PROVIDERS: ATTEND Internal Medicine Nephrology
DX: N18.32 Chronic kidney disease, stage 3b (principal)
CPT/HCPCS: 36415; 80048

== ENCOUNTER → 2022-02-21 | Outpatient (CLI) | payer MEDICARE ==
--- NOTE | 2022-02-21 15:13 | XR ---
EXAMINATION TYPE: XR knee limited LT DATE OF EXAM: 02/21/2022 CLINICAL HISTORY: Left knee pain and swelling after recent fall injury. TECHNIQUE: Frontal and lateral views of the left knee are obtained . COMPARISON: None FINDINGS: Metallic hardware from total left knee arthroplasty is seen and appears satisfactory in al ignment and position. There is no periprosthetic fracture. [place] osseous structures are demineraliz ed. Overlying soft tissue is unremarkable. IMPRESSION: As above.
== END | disposition home or self-care (01) ==
LOC: RADXRMAIN 14:48
PROVIDERS: ATTEND Internal Medicine
DX: M25.562 Pain in left knee (principal); Z96.652 Presence of left artificial knee joint

== ENCOUNTER → 2022-04-11 | Outpatient (CLI) | payer MEDICARE ==
[2022-04-11 23:15] LABS: Basophils # (A) 0.03 X 10*3/uL (0.00-0.10); Basophils % (A) 0.5 %; Eosinophils # (A) 0.06 X 10*3/uL (0.04-0.35); Eosinophils % (A) 1.1 %; HCT 39.6 % (37.2-46.3); HGB 13.1 g/dL (12.0-15.0); Immature Grans, Automated 0.2 %; Lymphocytes # (A) 1.43 X 10*3/uL (0.90-5.00); Lymphocytes % (A) 25.7 %; MCH 32.8 pg (27.0-32.0); MCHC 33.1 g/dL (32.0-37.0); MCV 99.2 fL (80.0-97.0); Mean Platelet Volume 12.4 fL (9.5-12.2); Monocytes % (A) 5.4 %; NRBC Per 100 WBC 0 /100 WBCS (0.0-0.0); Neutrophils # (A) 3.74 X 10*3/uL (1.80-7.70); Neutrophils % (A) 67.1 %; Platelet Count 237 X 10*3/uL (140-440); RBC 3.99 X 10*6/uL (4.10-5.20); RDW 13.5 % (11.5-14.5); WBC 5.57 X 10*3/uL (4.50-10.00)
[2022-04-11 23:40] LABS: African American GFR (CKD) 30.5 (60.0-200.0); Anion Gap 11.6 mmol/L (10.00-18.00); BUN/Creat Ratio 13.56 Ratio (12.00-20.00); Blood Urea Nitrogen 24.4 mg/dL (9.0-27.0); Calcium 9.7 mg/dL (8.7-10.3); Carbon Dioxide 26.4 mmol/L (20.0-27.5); Non-African American GFR(CKD) 26.3 (60.0-200.0); Phosphorus 4.1 mg/dL (2.4-5.1); Potassium 3.9 mmol/L (3.5-5.5)
[2022-04-12 04:10] LABS: Appearance,Urine Clear (Clear); Bilirubin,Urine Negative (Negative); Blood,Urine Negative (Negative); Color,Urine Dark Yellow (Yellow); Ketones,Urine Negative (Negative); Nitrite,Urine Negative (Negative); Specific Gravity,Urine 1.014 (1.001-1.030); Urobilinogen,Urine 0.2 (0.2,1.0)
== END | disposition home or self-care (01) ==
LOC: LABWHC1 15:39
PROVIDERS: ATTEND Internal Medicine Nephrology
DX: N18.32 Chronic kidney disease, stage 3b (principal); N39.0 Urinary tract infection, site not specified; D64.9 Anemia, unspecified
CPT/HCPCS: 36415; 80048; 81003; 84100; 85025

== ENCOUNTER → 2022-04-30 | Outpatient (CLI) | payer MEDICARE ==
--- NOTE | 2022-04-30 15:04 | XR ---
EXAMINATION TYPE: XR foot complete LT DATE OF EXAM: 04/30/2022 2:58 PM INDICATION: Patient age:Female; 81 years old; Reason for study: [id number]; [facility]. COMPARISON: None TECHNIQUE: The left foot was examined in the AP, oblique, and lateral projections. FINDINGS: No evidence of any acute osseous pathology. No evidence of soft tissue swelling. Joints are preserve d. Calcaneal plantar spurring noted. Scattered mild osteophytosis of the joints. IMPRESSION: 1. No evidence of acute fracture. 2. Mild Scattered osteoarthrosis throughout the joints of the foot.
--- NOTE | 2022-04-30 15:15 | US ---
EXAMINATION TYPE: US kidneys/renal and bladder DATE OF EXAM: 04/30/2022 COMPARISON: NONE CLINICAL HISTORY: N18.32 CHRONIC KIDNEY DISEASE, STAGE 3B. CKD, elderly female with bowel gas and reza ited mobility EXAM MEASUREMENTS: Right Kidney: 7.3 x 3.8 x 4.0 cm Left Kidney: 7.7 x 3.7 x 4.8 cm Right Kidney: Hydronephrosis Left Kidney: limited views only, overlying bowel gas obscured kidney Bladder: not distended, patient said she did prep There is no evidence for hydronephrosis at this point in time. No nephrolithiasis is seen. No danette s are identified. The urinary bladder is anechoic. Bilateral ureteral jets are seen. IMPRESSION: Mild right hydronephrosis, correlate with CT of the pelvis.
--- NOTE | 2022-04-30 15:16 | XR ---
EXAMINATION TYPE: XR ankle complete LT DATE OF EXAM: 04/30/2022 2:59 PM INDICATION: Patient age:Female; 81 years old; Reason for study: [id number] PAIN AFTER A FALL; [facility]. COMPARISON: None TECHNIQUE: The left ankle is imaged in frontal, lateral and oblique projections. FINDINGS: There is no evidence of acute osseous pathology. The joint spaces are well-preserved without evidenc e of subluxation or dislocation. [place]'s fat pad is intact. Mild soft tissue swelling around the ankl e. No radiopaque foreign bodies are identified. Mild calcaneal plantar spurring noted. IMPRESSION: 1. No evidence of acute fracture. 2. Subcutaneous swelling around the ankle likely secondary to underlying soft tissue injury.
== END | disposition home or self-care (01) ==
LOC: RADUSWWP 13:49
PROVIDERS: ATTEND Family Medicine
DX: N18.32 Chronic kidney disease, stage 3b (principal); N13.30 Unspecified hydronephrosis; M19.071 Primary osteoarthritis, right ankle and foot
CPT/HCPCS: 76770

== ENCOUNTER → 2022-07-16 | Outpatient (CLI) | payer MEDICARE ==
[2022-07-16 14:22] VITALS: BP 165/91; PULSE 76; RESP 16; TEMP 97.5
== END ==
LOC: PROCWHC3 14:05
PROVIDERS: ATTEND Family Medicine
DX: M81.0 Age-related osteoporosis without current pathological fracture (principal); Z88.0 Allergy status to penicillin
CPT/HCPCS: 96372; J0897

== ENCOUNTER → 2022-07-16 | Outpatient (CLI) | payer MEDICARE ==
[2022-07-16 15:49] LABS: Appearance,Urine Clear (Clear); Bilirubin,Urine Negative (Negative); Blood,Urine Negative (Negative); Color,Urine Yellow; Glucose,Urine (UA) Negative (Negative); Ketones,Urine Negative (Negative); Leukocyte Esterase,Urine Negative (Negative); Nitrite,Urine Negative (Negative); PH, Urine 5.5 (5.0-8.0); Protein,Urine Trace (Negative); Specific Gravity,Urine 1.016 (1.001-1.035); Urobilinogen,Urine <2.0 mg/dL (<2.0)
[2022-07-16 19:04] LABS: Basophils # (A) 0.04 X 10*3/uL (0.00-0.10); Basophils % (A) 0.7 %; Eosinophils # (A) 0.09 X 10*3/uL (0.04-0.35); Eosinophils % (A) 1.5 %; HCT 38.3 % (37.2-46.3); HGB 12.5 g/dL (12.0-15.0); Immature Grans, Automated 0.2 %; Lymphocytes # (A) 1.25 X 10*3/uL (0.90-5.00); Lymphocytes % (A) 20.6 %; MCH 32.1 pg (27.0-32.0); MCHC 32.6 g/dL (32.0-37.0); MCV 98.2 fL (80.0-97.0); Mean Platelet Volume 11.8 fL (9.5-12.2); Monocytes # (A) 0.39 X 10*3/uL (0.20-1.00); Monocytes % (A) 6.4 %; NRBC Per 100 WBC 0 /100 WBCS (0.0-0.0); Neutrophils % (A) 70.6 %; Platelet Count 238 X 10*3/uL (140-440); RDW 14.1 % (11.5-14.5); WBC 6.08 X 10*3/uL (4.50-10.00)
[2022-07-16 21:28] LABS: % Iron Saturation 22.91 (12.00-45.00); African American GFR (CKD) 30.9 (60.0-200.0); Anion Gap 14.2 mmol/L (10.00-18.00); BUN/Creat Ratio 20.17 Ratio (12.00-20.00); Blood Urea Nitrogen 35.7 mg/dL (9.0-27.0); Calcium 9.5 mg/dL (8.7-10.3); Carbon Dioxide 25.5 mmol/L (20.0-27.5); Magnesium 2.6 mg/dL (1.5-2.4); Non-African American GFR(CKD) 26.7 (60.0-200.0); Phosphorus 4.3 mg/dL (2.4-5.1); Potassium 4.2 mmol/L (3.5-5.5); Uric Acid 5.5 mg/dL (2.9-7.7)
[2022-07-16 21:59] LABS: Albumin 4.7 g/dL (3.8-4.9); Ferritin 57.3 ng/mL (10.0-291.0)
== END | disposition home or self-care (01) ==
LOC: LABWHC1 14:32
PROVIDERS: ATTEND Internal Medicine Nephrology
DX: N25.81 Secondary hyperparathyroidism of renal origin (principal); N18.32 Chronic kidney disease, stage 3b; M10.9 Gout, unspecified; N39.0 Urinary tract infection, site not specified; D63.1 Anemia in chronic kidney disease; R80.9 Proteinuria, unspecified
CPT/HCPCS: 36415; 80048; 81003; 82040; 82306; 82728; 83540; 83550; 83735; 83970; 84100; 84550; 85025

== ENCOUNTER 2022-07-17 18:40 | Inpatient (IN) | payer MEDICARE ==
[2022-07-17] MEDS ORDERED: ONDANSETRON 4 MG/2 ML VIAL IVP STA (21:29)
[2022-07-17] MEDS ORDERED: SODIUM CHLORIDE 0.9% 1,000 ML IV STA (21:29)
[2022-07-17] MEDS ORDERED: MORPHINE SULFATE 2 MG/ML SYRINGE IVP STA (21:29)
--- NOTE | 2022-07-17 21:30 | ED ---
Abdominal Pain HPI - General Chief Complaint: Urogenital Stated Complaint: Hip Pain Time Seen by Provider: 07/17/22 21:27 Source: patient, RN notes reviewed, old records reviewed Mode of arrival: ambulatory Limitations: no limitations - History of Present Illness Initial Comments: this is a 82-year-old female to the emergency room today for evaluation. Patient presents today for evaluation regards to abdominal pain diffuse abdominal pain wrapping rate around to her back. Mild nausea no vomiting no other significant complaints.does have formal diagnosis of hydronephrosis.no history of abdominal surgery MD Complaint: abdominal pain, flank pain -: days(s) Location: epigastric, suprapubic, L flank Radiation: epigastric, suprapubic, L flank Migration to: epigastric, suprapubic, L flank Severity: moderate Severity scale (1-10): 5 Quality: stabbing, aching Consistency: intermittent Improves With: nothing Worsens With: nothing Associated Symptoms: nausea Treatments Prior to Arrival: other (0) - Related Data Home Medications Medication Instructions Recorded Confirmed Carbidopa/Levodopa [Sinemet 10-100 1 tab PO TID 05/30/21 07/16/22 mg Tablet] Levothyroxine Sodium 1 tab PO DAILY 05/30/21 07/16/22 Losartan [Cozaar] 1 tab PO DAILY 05/30/21 07/16/22 Simvastatin 1 tab PO DAILY 05/30/21 07/16/22 amantadine HCL [Amantadine] 1 tab PO BID 05/30/21 07/16/22 Metoprolol Tartrate [Lopressor] 12.5 mg PO DAILY 07/16/22 07/16/22 Allergies Allergy/AdvReac Type Severity Reaction Status Date / Time Penicillins Allergy Rash/Hives Verified 07/17/22 20:36 Review of Systems ROS Statement: Those systems with pertinent positive or pertinent negative responses have been documented in the HPI. ROS Other: All systems not noted in ROS Statement are negative. Past Medical History Past Medical History: Hypertension, Thyroid Disorder Additional Past Medical History / Comment(s): Parkinsons, TIA History of Any Multi-Drug Resistant Organisms: None Reported Past Surgical History: Orthopedic Surgery Past Anesthesia/Blood Transfusion Reactions: No Reported Reaction Past Psychological History: No Psychological Hx Reported Smoking Status: Never smoker Past Alcohol Use History: None Reported Past Drug Use History: None Reported General Exam Limitations: no limitations General appearance: alert, in no apparent distress Head exam: Present: atraumatic, normocephalic, normal inspection Eye exam: Present: normal appearance, PERRL, EOMI. Absent: scleral icterus, conjunctival injection, periorbital swelling ENT exam: Present: normal exam, mucous membranes moist Neck exam: Present: normal inspection. Absent: tenderness, meningismus, lymphadenopathy Respiratory exam: Present: normal lung sounds bilaterally. Absent: respiratory distress, wheezes, rales, rhonchi, stridor Cardiovascular Exam: Present: regular rate, normal rhythm, normal heart sounds. Absent: systolic murmur, diastolic murmur, rubs, gallop, clicks GI/Abdominal exam: Present: soft, normal bowel sounds. Absent: distended, tenderness, guarding, rebound, rigid Extremities exam: Present: normal inspection, full ROM, normal capillary refill. Absent: tenderness, pedal edema, joint swelling, calf tenderness Back exam: Present: normal inspection Neurological exam: Present: alert, oriented X3, CN II-XII intact Psychiatric exam: Present: normal affect, normal mood Skin exam: Present: warm, dry, intact, normal color. Absent: rash Course Vital Signs 07/17/22 07/17/22 20:31 23:32 Temperature 97.7 F 98.4 F Pulse Rate 65 66 Respiratory 18 19 Rate Blood Pressure 140/78 168/88 O2 Sat by Pulse 98 99 Oximetry - Reevaluation(s) Reevaluation #1: 07/17/22 23:40 medical record is reviewed Reevaluation #2: 07/17/22 23:40 patient informed results and questions answered Reevaluation #3: 07/17/22 23:40 pain difficult to control now is improving - Consultations Consultation #1: spoke with admitting physicians who agree to admit this patient Medical Decision Making - Medical Decision Making 82 female to the emergency department for evaluation. Patient be admitted for right-sided hydronephrosis secondary to likely kidney stone, urology to see - Lab Data Result diagrams: 07/17/22 21:39 07/17/22 21:39 Lab Results 07/17/22 07/17/22 07/17/22 Range/Units 21:39 21:39 23:00 WBC 5.8 (3.8-10.6) k/uL RBC 3.91 (3.80-5.40) m/uL Hgb 12.9 (11.4-16.0) gm/dL Hct 38.0 (34.0-46.0) % MCV 97.2 (80.0-100.0) fL MCH 33.0 (25.0-35.0) pg MCHC 34.0 (31.0-37.0) g/dL RDW 13.2 (11.5-15.5) % Plt Count 191 (150-450) k/uL MPV 8.4 Neutrophils % 74 % Lymphocytes % 15 % Monocytes % 6 % Eosinophils % 1 % Basophils % 1 % Neutrophils # 4.3 (1.3-7.7) k/uL Lymphocytes # 0.9 L (1.0-4.8) k/uL Monocytes # 0.4 (0-1.0) k/uL Eosinophils # 0.1 (0-0.7) k/uL Basophils # 0.1 (0-0.2) k/uL Sodium 138 (137-145) mmol/L Potassium 4.5 (3.5-5.1) mmol/L Chloride 106 (98-107) mmol/L Carbon Dioxide 26 (22-30) mmol/L Anion Gap 6 mmol/L BUN 34 H (7-17) mg/dL Creatinine 1.57 H (0.52-1.04) mg/dL Est GFR (CKD-EPI)AfAm 36 (>60 ml/min/1.73 sqM) Est GFR (CKD-EPI)NonAf 31 (>60 ml/min/1.73 sqM) Glucose 105 H (74-99) mg/dL Calcium 8.3 L (8.4-10.2) mg/dL Total Bilirubin 0.6 (0.2-1.3) mg/dL AST 40 H (14-36) U/L ALT 14 (4-34) U/L Alkaline Phosphatase 49 (38-126) U/L Total Protein 6.9 (6.3-8.2) g/dL Albumin 4.2 (3.5-5.0) g/dL Amylase 91 (30-110) U/L Lipase 26 (23-300) U/L Urine Color Light Yellow Urine Appearance Clear (Clear) Urine pH 7.0 (5.0-8.0) Ur Specific [place] 1.006 (1.001-1.035) Urine Protein Negative (Negative) Urine Glucose (UA) Negative (Negative) Urine Ketones Negative (Negative) Urine Blood Negative (Negative) Urine Nitrite Negative (Negative) Urine Bilirubin Negative (Negative) Urine Urobilinogen <2.0 (<2.0) mg/dL Ur Leukocyte Esterase Moderate H (Negative) Urine WBC 9 H (0-5) /hpf Ur Squamous Epith Cells <1 (0-4) /hpf - Radiology Data Radiology results: report reviewed (CT abdomen and pelvis positive for hydronephrosis), image reviewed Disposition Clinical Impression: Right ureteral stone, Right flank pain, Hydronephrosis, right Disposition: ADMITTED IP TO THIS [facility] Condition: Good Is patient prescribed a controlled substance at d/c from ED?: No Referrals: Duane Garcia DO [Primary Care Provider] - 1-2 days Time of Disposition: 23:40
[2022-07-17 21:57] LABS: Basophils # (A) 0.1 k/uL (0-0.2); Basophils % (A) 1 %; Eosinophils # (A) 0.1 k/uL (0-0.7); Eosinophils % (A) 1 %; HGB 12.9 gm/dL (11.4-16.0); Lymphocytes # (A) 0.9 k/uL (1.0-4.8); Lymphocytes % (A) 15 %; MCV 97.2 fL (80.0-100.0); Mean Platelet Volume 8.4; Monocytes # (A) 0.4 k/uL (0-1.0); Monocytes % (A) 6 %; Neutrophils # (A) 4.3 k/uL (1.3-7.7); Neutrophils % (A) 74 %; Platelet Count 191 k/uL (150-450); RBC 3.91 m/uL (3.80-5.40); RDW 13.2 % (11.5-15.5); WBC 5.8 k/uL (3.8-10.6)
[2022-07-17 22:11] LABS: Albumin 4.2 g/dL (3.5-5.0); Calcium 8.3 mg/dL (8.4-10.2); Potassium 4.5 mmol/L (3.5-5.1); Total Bilirubin 0.6 mg/dL (0.2-1.3); Total Protein 6.9 g/dL (6.3-8.2)
--- NOTE | 2022-07-17 22:42 | CT ---
EXAMINATION TYPE: CT abdomen pelvis wo con DATE OF EXAM: 07/17/2022 COMPARISON: None HISTORY: RT sided flank pain. recent hydronephrosis dx. CT DLP: 451.3 mGycm Automated exposure control for dose reduction was used. Images obtained from the diaphragm to the floor of the pelvis with no contrast. Lung bases show some atelectasis left lower lobe. No pleural effusion. Heart is enlarged. No pericard ial effusion. Stomach is intact. Liver and spleen are intact. There is no evidence of pancreatic mass. The bile funmi ts are not dilated. Gallbladder is intact. There is moderately severe right-sided hydronephrosis. Exam limited by motion. There are some calcifi cations at the right ureteropelvic junction. There is 5 mm calcification at the left renal hilum that is likely vascular. There is obvious chronic calcification in the abdominal aorta. There is no retro peritoneal adenopathy. Ureters do not appear dilated. Bladder distends smoothly. No inguinal hernia. The uterus is anteverted. There is a mild thoracolumbar levoscoliosis. No lumbar paraspinal mass. The bony pelvis is intact. The hip joints are intact. There is no mesenteric edema. No ascites or free air. No sign of a bowel obstruction. There are some air bubbles at the left side labia could be some debris at the skin surface but inflammatory mass con taining air not excluded. IMPRESSION: Moderate right-sided hydronephrosis. There is likely large calculi obstructing the right ureteropelvi c junction. Exam limited by motion. Atherosclerotic vascular disease. Cannot exclude soft tissue air in the left sided labia and correlation with the physical exam needed
[2022-07-17] MEDS ORDERED: KETOROLAC 15 MG/ML 1 ML VIAL IVP STA (22:58)
[2022-07-17] MEDS ORDERED: HYDROmorphone 0.5 MG/0.5 ML SYRINGE IVP STA (22:58)
[2022-07-17 23:13] LABS: Appearance,Urine Clear (Clear); Bilirubin,Urine Negative (Negative); Blood,Urine Negative (Negative); Color,Urine Light Yellow; Glucose,Urine (UA) Negative (Negative); Ketones,Urine Negative (Negative); Leukocyte Esterase,Urine Moderate (Negative); Nitrite,Urine Negative (Negative); Protein,Urine Negative (Negative); Specific Gravity,Urine 1.006 (1.001-1.035); Squamous Epithelial Cell,Urine <1 /hpf (0-4); Urobilinogen,Urine <2.0 mg/dL (<2.0); WBC,Urine 9 /hpf (0-5)
[2022-07-17] MEDS ORDERED: ONDANSETRON 4 MG/2 ML VIAL IVP PRN (23:38)
[2022-07-17] MEDS ORDERED: NALOXONE 0.4 MG/ML 1 ML VIAL IV PRN (23:38)
[2022-07-18] MEDS: SODIUM CHLORIDE 0.9% 1,000 ML IV SCH ×3 (01:17→17:21)
[2022-07-18 05:19] LABS: Basophils # (A) 0.1 k/uL (0-0.2); Basophils % (A) 1 %; Eosinophils # (A) 0.1 k/uL (0-0.7); Eosinophils % (A) 2 %; HCT 36.3 % (34.0-46.0); HGB 12.1 gm/dL (11.4-16.0); Lymphocytes # (A) 1.3 k/uL (1.0-4.8); Lymphocytes % (A) 28 %; MCH 32.8 pg (25.0-35.0); MCHC 33.3 g/dL (31.0-37.0); MCV 98.6 fL (80.0-100.0); Mean Platelet Volume 8.9; Monocytes # (A) 0.3 k/uL (0-1.0); Monocytes % (A) 7 %; Neutrophils % (A) 63 %; Platelet Count 190 k/uL (150-450); RBC 3.68 m/uL (3.80-5.40); RDW 13.1 % (11.5-15.5); WBC 4.8 k/uL (3.8-10.6)
[2022-07-18 05:31] LABS: Albumin 3.8 g/dL (3.5-5.0); Calcium 7.6 mg/dL (8.4-10.2); Potassium 4.5 mmol/L (3.5-5.1); Total Bilirubin 0.4 mg/dL (0.2-1.3); Total Protein 6.2 g/dL (6.3-8.2)
[2022-07-18] MEDS: HYDROmorphone 0.5 MG/0.5 ML SYRINGE IVP PRN ×2 (09:28→20:17)
[2022-07-18] MEDS ORDERED: ERGOCALCIFEROL 1,250 MCG (50,000 IU) CAPSULE PO SCH (13:45)
[2022-07-18] MEDS: LOSARTAN 25 MG TAB PO SCH ×3 (14:05→17:20)
[2022-07-18] MEDS: LEVOTHYROXINE 88 MCG TAB PO SCH (14:05)
[2022-07-18] MEDS: HEPARIN SODIUM,PORCINE/PF 5,000 UNIT/0.5 ML SYRINGE SQ SCH ×2 (14:39→20:16)
--- NOTE | 2022-07-18 16:17 | P.GSCN ---
History of Present Illness Consult date: 07/18/22 Reason for Consult: Right-sided hydronephrosis History of present illness: This is an 82-year-old female presented to the hospital with right-sided flank pain, has been ongoing for approximately a month but has gotten worse recently. She did have a outpatient renal ultrasound that showed evidence of hydronephrosis. On presentation to the ER underwent a CT abdomen and pelvis that confirmed the finding of hydronephrosis, there was a calcification along the renal pelvis difficult to assess if vascular calcification versus a stone. Denies any nausea, vomiting, gross hematuria or dysuria. No previous history of kidney stones. No previous renal surgeries. No known family history of kidney stones. Review of Systems - Constitutional Denies fever, Denies weight loss - EENT Ears, nose, mouth and throat: Denies dysphagia - Cardiovascular Denies chest pain, Denies shortness of breath - Respiratory Denies cough, Denies 7 - Gastrointestinal Reports abdominal pain - Genitourinary Genitourinary: Reports flank pain, Denies dysuria - Integumentary Denies rash, Denies unusual bruising - Neurological Denies headaches, Denies syncope Past Medical History Past Medical History: Hypertension, Thyroid Disorder Additional Past Medical History / Comment(s): Parkinsons, TIA History of Any Multi-Drug Resistant Organisms: None Reported Past Surgical History: Orthopedic Surgery Past Anesthesia/Blood Transfusion Reactions: No Reported Reaction Past Psychological History: No Psychological Hx Reported Smoking Status: Never smoker Past Alcohol Use History: None Reported Past Drug Use History: None Reported Medications and Allergies Home Medications Medication Instructions Recorded Confirmed Type Levothyroxine Sodium 88 mcg PO DAILY 05/30/21 07/18/22 History amantadine HCL [Amantadine] 100 mg PO BID 05/30/21 07/18/22 History Carbidopa-Levodopa ER 50-200Mg 1 tab PO TID@1100,1500,1900 07/18/22 07/18/22 History [Sinemet CR 50-200 mg] Ergocalciferol [Vitamin D2 (1250 1,250 mcg PO QMONTHLY 07/18/22 07/18/22 History Mcg = [id number] Iu)] Losartan Potassium 25 mg PO DAILY 07/18/22 07/18/22 History Losartan [Cozaar] 50 mg PO HS 07/18/22 07/18/22 History Metoprolol Tartrate [Lopressor] 12.5 mg PO HS 07/18/22 07/18/22 History Simvastatin [Zocor] 20 mg PO HS 07/18/22 07/18/22 History calcitrioL [Rocaltrol] 0.25 mcg PO MO 07/18/22 07/18/22 History Allergies Allergy/AdvReac Type Severity Reaction Status Date / Time Penicillins Allergy Rash/Hives Verified 07/18/22 07:30 Surgical - Exam Vital Signs Temp Pulse Resp BP Pulse Ox 97.7 F 65 18 140/78 98 07/17/22 20:31 07/17/22 20:31 07/17/22 20:31 07/17/22 20:31 07/17/22 20:31 - General no distress, moderate pain - Eyes normal ocular movement, no pale - ENT normal nares, normal mucosa - Respiratory normal expansion, normal respiratory effort - Abdomen Abdomen: soft, tender (right flank) - Psychiatric oriented to time, oriented to person, oriented to place Results - Labs 07/18/22 04:51 07/18/22 04:51 Abnormal Lab Results - Last 24 Hours (Table) 07/17/22 07/17/22 07/17/22 Range/Units 21:39 21:39 23:00 RBC (3.80-5.40) m/uL Lymphocytes # 0.9 L (1.0-4.8) k/uL Chloride (98-107) mmol/L BUN 34 H (7-17) mg/dL Creatinine 1.57 H (0.52-1.04) mg/dL Glucose 105 H (74-99) mg/dL Calcium 8.3 L (8.4-10.2) mg/dL AST 40 H (14-36) U/L Total Protein (6.3-8.2) g/dL Ur Leukocyte Esterase Moderate H (Negative) Urine WBC 9 H (0-5) /hpf 07/18/22 07/18/22 Range/Units 04:51 04:51 RBC 3.68 L (3.80-5.40) m/uL Lymphocytes # (1.0-4.8) k/uL Chloride 108 H (98-107) mmol/L BUN 33 H (7-17) mg/dL Creatinine 1.75 H (0.52-1.04) mg/dL Glucose 108 H (74-99) mg/dL Calcium 7.6 L (8.4-10.2) mg/dL AST (14-36) U/L Total Protein 6.2 L (6.3-8.2) g/dL Ur Leukocyte Esterase (Negative) Urine WBC (0-5) /hpf Diabetes panel 07/17/22 07/18/22 Range/Units 21:39 04:51 Sodium 138 142 (137-145) mmol/L Potassium 4.5 4.5 (3.5-5.1) mmol/L Chloride 106 108 H (98-107) mmol/L Carbon Dioxide 26 28 (22-30) mmol/L BUN 34 H 33 H (7-17) mg/dL Creatinine 1.57 H 1.75 H (0.52-1.04) mg/dL Glucose 105 H 108 H (74-99) mg/dL Calcium 8.3 L 7.6 L (8.4-10.2) mg/dL AST 40 H 30 (14-36) U/L ALT 14 22 (4-34) U/L Alkaline Phosphatase 49 50 (38-126) U/L Total Protein 6.9 6.2 L (6.3-8.2) g/dL Albumin 4.2 3.8 (3.5-5.0) g/dL Calcium panel 07/17/22 07/18/22 Range/Units 21:39 04:51 Calcium 8.3 L 7.6 L (8.4-10.2) mg/dL Albumin 4.2 3.8 (3.5-5.0) g/dL Pituitary panel 07/17/22 07/18/22 Range/Units 21:39 04:51 Sodium 138 142 (137-145) mmol/L Potassium 4.5 4.5 (3.5-5.1) mmol/L Chloride 106 108 H (98-107) mmol/L Carbon Dioxide 26 28 (22-30) mmol/L BUN 34 H 33 H (7-17) mg/dL Creatinine 1.57 H 1.75 H (0.52-1.04) mg/dL Glucose 105 H 108 H (74-99) mg/dL Calcium 8.3 L 7.6 L (8.4-10.2) mg/dL Adrenal panel 07/17/22 07/18/22 Range/Units 21:39 04:51 Sodium 138 142 (137-145) mmol/L Potassium 4.5 4.5 (3.5-5.1) mmol/L Chloride 106 108 H (98-107) mmol/L Carbon Dioxide 26 28 (22-30) mmol/L BUN 34 H 33 H (7-17) mg/dL Creatinine 1.57 H 1.75 H (0.52-1.04) mg/dL Glucose 105 H 108 H (74-99) mg/dL Calcium 8.3 L 7.6 L (8.4-10.2) mg/dL Total Bilirubin 0.6 0.4 (0.2-1.3) mg/dL AST 40 H 30 (14-36) U/L ALT 14 22 (4-34) U/L Alkaline Phosphatase 49 50 (38-126) U/L Total Protein 6.9 6.2 L (6.3-8.2) g/dL Albumin 4.2 3.8 (3.5-5.0) g/dL - Imaging CT scan - abdomen: image reviewed (right sided hydronephrosis, calicification overlying the kidney appear vascular, but given motion artifiact could be stone) Assessment and Plan Assessment: 82-year-old female admitted to the hospital with right flank pain, right-sided hydronephrosis. Creatinine stable at baseline, urinalysis within normal limits. CT abdomen showed right sided hydronephrosis, calicification overlying the kidney appear vascular, but given motion artifiact could be stone. Discussed with her the review of CTs difficult to assess whether there is a stone or the exact etiology of the hydronephrosis, at this time given the pain in the right sided and hydronephrosis we'll proceed with right retrograde pyelogram. If it does confirm the evidence of the stone and we'll proceed with holmium laser lithotripsy at the same setting. Discussed with him was that she will require stent insertion also. Discussed the risk and benefit of surgery in detail -Keep nothing by mouth -OR first cystoscopy, right retrograde pyelogram, ureteroscopy, possible holmium laser lithotripsy and stent insertion
[2022-07-18] MEDS ORDERED: LACTATED RINGERS 1,000 ML IV ONE (16:42)
[2022-07-18] MEDS ORDERED: PROPOFOL 10 MG/ML 20 ML VIAL IV ONE (17:10)
[2022-07-18] MEDS ORDERED: fentaNYL (PF) 50 MCG/ML 2 ML AMP ONE (17:10)
[2022-07-18] MEDS ORDERED: LIDOCAINE 2% INJ 20 MG/ML (2 ML VIAL) ONE (17:10)
[2022-07-18] MEDS: CARBIDOPA-LEVODOPA ER 50-200MG 1 EACH TABLET.ER PO SCH ×2 (17:21→20:16)
[2022-07-18] MEDS ORDERED: IOPAMIDOL-370 50ML BTL MISCELLANE ONE (17:26)
--- NOTE | 2022-07-18 17:39 | P.OP ---
Date of Procedure: 07/18/22 Preoperative Diagnosis: Right hydronephrosis Postoperative Diagnosis: Same Procedure(s) Performed: Cystoscopy, right reterograde pyelogram, and stent insertion Implants: 6-Greenlandic by 24 cm stent in the right ureter Anesthesia: CYNTHIA Surgeon: Oh Montesinos Estimated Blood Loss (ml): 5 Pathology: none sent Condition: stable Disposition: PACU Indications for Procedure: 82-year-old female admitted to the hospital with right flank pain, right-sided hydronephrosis. Creatinine stable at baseline, urinalysis within normal limits. CT abdomen showed right sided hydronephrosis, calicification overlying the kidney appear vascular, but given motion artifiact could be stone. Discussed with her the review of CTs difficult to assess whether there is a stone or the exact etiology of the hydronephrosis, at this time given the pain in the right sided and hydronephrosis we'll proceed with right retrograde pyelogram. If it does confirm the evidence of the stone and we'll proceed with holmium laser lithotripsy at the same setting. Discussed with him was that she will require stent insertion also. Discussed the risk and benefit of surgery in detail Operative Findings: Right-sided hydronephrosis Description of Procedure: Patient brought to the operating room, general anesthesia was induced. She was prepped and draped in sterile fashion a placement dorsal lithotomy position. Cystoscopy fitted with 21-Greenlandic sheath was inserted per urethra, cystoscopy was performed which showed no abnormality within the bladder. Attention was then carried to the right ureteral orifice which was intubated with a 6-Greenlandic open- ended catheter, retrograde pyelogram was performed on that side which showed no filling defect along the course of the ureter. There was severe hydronephrosis with narrowing at the UPJ, there were no filling defect within the kidney. The radiopaque density appeared to be vascular, as they were not within the collecting system. At this time a sensor wire was advanced through the catheter and the catheter was removed with the wire in place. Next a ureteral stent was passed over the wire, the proximal curl was visualized on fluoroscopy and the distal curl was visualized using the cystoscope. The bladder was emptied at the end of the case. Patient tolerated procedure well was taken to recovery in stable condition
[2022-07-18] MEDS: METOPROLOL TARTRATE 12.5 MG TAB PO SCH (20:16)
[2022-07-18] MEDS: LOSARTAN 50 MG TAB PO SCH (20:16)
[2022-07-18] MEDS: ATORVASTATIN 10 MG TAB PO SCH (20:16)
--- NOTE | 2022-07-19 02:09 | HP ---
HISTORY AND PHYSICAL CHIEF COMPLAINT: Right loin pain. HISTORY OF PRESENT ILLNESS: This is an 82-year-old woman with a past medical history of multiple medical problems, admitted with right loin pain. The patient was further evaluated and the patient was found to have right hydronephrosis, possibly caused by obstructing right ureteropelvic junction stone. There is no history of any fever, rigors, or chills at this time. PAST MEDICAL HISTORY: Reviewed include hypertension. The rest of the history, and the whole chart is reviewed. HOME MEDICATIONS: Reviewed again include Zocor, doses and rest of medication noted. ALLERGIES: Penicillin. FAMILY HISTORY: No history of heart disease or strokes in the family. SOCIAL HISTORY: No history of smoking. No history of alcohol. REVIEW OF SYSTEMS: A 14-point review of systems is negative except as mentioned earlier. PHYSICAL EXAMINATION: VITAL SIGNS: Pulse is 54, blood pressure 158/83, respirations 18. HEENT: Conjunctivae normal. NECK: No JVD. CARDIOVASCULAR: S1, S2 muffled. RESPIRATIONS: Breath sounds diminished at the bases. No rhonchi. No crackles. ABDOMEN: Soft, diffuse tenderness in the right side especially in the right renal angle present. No mass palpable. No ascites. LEGS: No edema. No swelling. NERVOUS SYSTEM: No focal deficits. SKIN: No ulcer, rash, bleeding. JOINTS: No active deforming arthropathy. LABS: Reviewed. Hemoglobin 12.1, white count is normal. Creatinine is 1.75. ASSESSMENT: 1. Acute right hydronephrosis caused by right ureteropelvic stone. 2. Chronic kidney disease, stage 3. 3. Hypertension. 4. Multiple medical issues. RECOMMENDATIONS AND DISCUSSION: This is an 82-year-old woman, who presented with multiple complex medical issues. We will monitor the patient closely. We will avoid nephrotoxic medications. Otherwise, continue with IV fluids. Repeat labs. Resume the home medications and urology consultation. Prognosis guarded because of multiple complex medical issues. Further recommendations to follow. See orders for further details. MMODL / IJN: [id number] /
[2022-07-19] MEDS: HYDROmorphone 0.5 MG/0.5 ML SYRINGE IVP PRN ×2 (04:50→09:27)
[2022-07-19] MEDS: LEVOTHYROXINE 88 MCG TAB PO SCH (06:19)
[2022-07-19] MEDS: SODIUM CHLORIDE 0.9% 1,000 ML IV SCH ×2 (06:19→12:32)
--- NOTE | 2022-07-19 07:52 | FL ---
Intraoperative/procedural fluoroscopic services were provided. Total fluoroscopy time is 43.2 seconds with a total of 4 submitted images to PACS. Please see the operative/procedural note for further det ails.
[2022-07-19] MEDS: LOSARTAN 25 MG TAB PO SCH (08:48)
[2022-07-19] MEDS: HEPARIN SODIUM,PORCINE/PF 5,000 UNIT/0.5 ML SYRINGE SQ SCH ×2 (08:49→21:45)
[2022-07-19] MEDS: PANTOPRAZOLE 40 MG TABLET PO SCH (08:49)
[2022-07-19] MEDS ORDERED: HYDROcodone/APAP 5-325MG 1 EACH TAB PO PRN (10:17)
[2022-07-19 11:16] LABS: Basophils # (A) 0.04 X 10*3/uL (0.00-0.10); Basophils % (A) 0.7 %; Eosinophils # (A) 0.15 X 10*3/uL (0.04-0.35); Eosinophils % (A) 2.6 %; HCT 36.7 % (37.2-46.3); HGB 11.9 g/dL (12.0-15.0); Immature Grans, Automated 0.2 %; Lymphocytes # (A) 1.91 X 10*3/uL (0.90-5.00); Lymphocytes % (A) 33.5 %; MCH 31.9 pg (27.0-32.0); MCHC 32.4 g/dL (32.0-37.0); MCV 98.4 fL (80.0-97.0); Mean Platelet Volume 11.7 fL (9.5-12.2); Monocytes # (A) 0.45 X 10*3/uL (0.20-1.00); Monocytes % (A) 7.9 %; NRBC Per 100 WBC 0 /100 WBCS (0.0-0.0); Neutrophils # (A) 3.14 X 10*3/uL (1.80-7.70); Neutrophils % (A) 55.1 %; Platelet Count 209 X 10*3/uL (140-440); RBC 3.73 X 10*6/uL (4.10-5.20); RDW 14.2 % (11.5-14.5)
--- NOTE | 2022-07-19 11:38 | P.PN ---
Subjective Progress Note Date: 07/19/22 Underwent right sided stent insertion yesterday, doing well this am, indicates right flank pain has improved. Denies any nausea or vomiting. Denies any dysuria, having intermitting gross hematuria Objective - Vital Signs Vital signs: Vital Signs Temp 99.0 F 07/19/22 04:20 Pulse 58 L 07/19/22 04:20 Resp 14 07/19/22 04:20 BP 139/65 07/19/22 04:20 Pulse Ox 96 07/19/22 04:20 FiO2 Intake & Output 07/18/22 07/19/22 07/19/22 18:59 06:59 18:59 Intake Total 650 Output Total 2 Balance 648 Weight 68.039 kg 68.039 kg Intake: IV 650 Output: Estimated Blood Loss 2 Other: Voiding Method Bedside Commode # Voids 2 - Constitutional General appearance: Present: no acute distress - Gastrointestinal General gastrointestinal: Present: soft. Absent: distended, tenderness - Psychiatric Psychiatric: Present: A&O x's 3 - Labs CBC & Chem 7: 07/19/22 07:03 07/18/22 04:51 Labs: Abnormal Lab Results - Last 24 Hours (Table) 07/19/22 Range/Units 07:03 RBC 3.73 L (4.10-5.20) X 10*6/uL Hgb 11.9 L (12.0-15.0) g/dL Hct 36.7 L (37.2-46.3) % MCV 98.4 H (80.0-97.0) fL Assessment and Plan Assessment: 82-year-old female admitted to the hospital with right flank pain, right-sided hydronephrosis. Evidence of narrowing at the UPJ. Underwent right-sided stent insertion yesterday, flank pain is improving -Okay for discharge from urology standpoint -We'll arrange for follow-up in 4-6 weeks for a right-sided ureteroscopy, possible stent removal versus exchange
[2022-07-19 12:07] LABS: Anion Gap 12.5 mmol/L (10.00-18.00); Blood Urea Nitrogen 18.2 mg/dL (9.0-27.0); Calcium 7.8 mg/dL (8.7-10.3); Carbon Dioxide 24.5 mmol/L (20.0-27.5); Non-African American GFR(CKD) 35.4 (60.0-200.0); Potassium 3.9 mmol/L (3.5-5.5); Total Bilirubin 0.5 mg/dL (0.30-1.20)
[2022-07-19] MEDS: CARBIDOPA-LEVODOPA ER 50-200MG 1 EACH TABLET.ER PO SCH ×3 (12:29→21:45)
[2022-07-19] MEDS: DOCUSATE 100 MG CAP PO SCH ×2 (12:29→21:45)
[2022-07-19] MEDS: METOPROLOL TARTRATE 12.5 MG TAB PO SCH (21:45)
[2022-07-19] MEDS: ATORVASTATIN 10 MG TAB PO SCH (21:45)
[2022-07-19] MEDS: LOSARTAN 50 MG TAB PO SCH (21:46)
[2022-07-20 04:45] VITALS: BP 173/89; PULSE 50; RESP 18; TEMP 98.4
--- NOTE | 2022-07-20 05:07 | PN ---
PROGRESS NOTE DATE OF SERVICE: 07/19/2022 SUBJECTIVE: This 82-year-old woman, who was admitted after left ESWL stone and hydronephrosis. Underwent cystoscopy, right retrograde pyelogram and stent insertion by Urology. No chest pain. No palpitation. Her creatinine has improved. The patient is complaining of pain. OBJECTIVE: VITAL SIGNS: Pulse is 61, blood pressure ntd, respirations 18. CHEST: Clear. ABDOMEN: Soft, nontender. NERVOUS SYSTEM: Nonfocal. LABORATORY DATA: Reviewed. ASSESSMENT: 1. Acute right hydronephrosis secondary to right ureteropelvic, stone, status post cystoscopy and stent insertion. 2. Possible acute renal failure with acute post obstructive uropathy. 3. Hypertension. 4. Multiple medical issues. RECOMMENDATIONS: I recommend to continue current management. repeat labs and to continue symptomatic treatment. Closely, follow with Urology. Further recommendations to follow. See orders for details. MMODL / IJN: [id number] / MTDD
[2022-07-20] MEDS: SODIUM CHLORIDE 0.9% 1,000 ML IV SCH (05:52)
[2022-07-20] MEDS: LEVOTHYROXINE 88 MCG TAB PO SCH (05:52)
[2022-07-20] MEDS: PANTOPRAZOLE 40 MG TABLET PO SCH (08:49)
[2022-07-20] MEDS: DOCUSATE 100 MG CAP PO SCH (08:49)
[2022-07-20] MEDS: LOSARTAN 25 MG TAB PO SCH (08:49)
[2022-07-20] MEDS: HEPARIN SODIUM,PORCINE/PF 5,000 UNIT/0.5 ML SYRINGE SQ SCH (08:49)
[2022-07-20 08:56] LABS: Basophils # (A) 0.05 X 10*3/uL (0.00-0.10); Basophils % (A) 0.9 %; Eosinophils # (A) 0.19 X 10*3/uL (0.04-0.35); Eosinophils % (A) 3.4 %; HCT 38.7 % (37.2-46.3); HGB 12.7 g/dL (12.0-15.0); Immature Grans, Automated 0.2 %; Lymphocytes # (A) 1.71 X 10*3/uL (0.90-5.00); Lymphocytes % (A) 30.9 %; MCH 32.1 pg (27.0-32.0); MCHC 32.8 g/dL (32.0-37.0); MCV 97.7 fL (80.0-97.0); Mean Platelet Volume 11.5 fL (9.5-12.2); Monocytes # (A) 0.43 X 10*3/uL (0.20-1.00); Monocytes % (A) 7.8 %; NRBC Per 100 WBC 0 /100 WBCS (0.0-0.0); Neutrophils # (A) 3.14 X 10*3/uL (1.80-7.70); Neutrophils % (A) 56.8 %; Platelet Count 218 X 10*3/uL (140-440); RBC 3.96 X 10*6/uL (4.10-5.20); WBC 5.53 X 10*3/uL (4.50-10.00)
[2022-07-20 09:06] LABS: African American GFR (CKD) 39.3 (60.0-200.0); Anion Gap 9.8 mmol/L (10.00-18.00); BUN/Creat Ratio 13.52 Ratio (12.00-20.00); Blood Urea Nitrogen 19.6 mg/dL (9.0-27.0); Calcium 7.5 mg/dL (8.7-10.3); Carbon Dioxide 23.5 mmol/L (20.0-27.5); Non-African American GFR(CKD) 33.9 (60.0-200.0); Potassium 3.8 mmol/L (3.5-5.5)
[2022-07-20] MEDS: CARBIDOPA-LEVODOPA ER 50-200MG 1 EACH TABLET.ER PO SCH (10:07)
--- NOTE | 2022-07-20 12:59 | DS ---
DISCHARGE SUMMARY FINAL DIAGNOSES: 1. Acute right hydronephrosis secondary to right ureteropelvic stone, status post cystoscopy and stent insertion. 2. Acute renal failure with acute postobstructive uropathy. 3. Hypertension. 4. Multiple medical issues. DISCHARGE DISPOSITION: The patient will be discharged in stable condition with guarded prognosis. HISTORY OF PRESENT ILLNESS: This 82-year-old woman, who was admitted with right loin pain and right ureteropelvic stone as well as right hydronephrosis. Urology performed cystoscopy and stent insertion, improved significantly. Creatinine also normalized. PHYSICAL EXAMINATION: VITAL SIGNS: Stable. CARDIOVASCULAR: S1, S2. ABDOMEN: Soft. NERVOUS SYSTEM: No focal deficit. DISCHARGE INSTRUCTIONS: The patient will be discharged home in stable condition with guarded prognosis. Resume the home medications. CBC, BMP with Dr. Garcia. Follow up with Urology as recommended. Otherwise, Tylenol p.r.n. for pain. MMODL / IJN: [id number] /
--- NOTE | 2022-07-20 13:01 | P.PN ---
Subjective Underwent right sided stent insertion 07/18, doing well this am, indicates right flank pain has improved, creat is stable at 1.5 Denies any nausea or vomiting. Denies any dysuria, having intermitting gross hematuria Objective - Vital Signs Vital signs: Vital Signs Temp 98.4 F 07/20/22 04:41 Pulse 50 L 07/20/22 04:41 Resp 18 07/20/22 04:41 BP 173/89 07/20/22 04:41 Pulse Ox 97 07/20/22 04:41 FiO2 Intake & Output 07/19/22 07/20/22 07/20/22 18:59 06:59 18:59 Intake Total 240 Balance 240 Intake: Oral 240 Other: Voiding Method Bedside Commode # Voids 1 1 1 - Constitutional General appearance: Present: no acute distress - Gastrointestinal General gastrointestinal: Present: soft. Absent: distended - Labs CBC & Chem 7: 07/20/22 04:45 07/20/22 04:45 Labs: Abnormal Lab Results - Last 24 Hours (Table) 07/20/22 07/20/22 Range/Units 04:45 04:45 RBC 3.96 L (4.10-5.20) X 10*6/uL MCV 97.7 H (80.0-97.0) fL MCH 32.1 H (27.0-32.0) pg Anion Gap 9.80 L (10.00-18.00) mmol/L Est GFR (CKD-EPI)AfAm 39.3 L (60.0-200.0) Est GFR (CKD-EPI)NonAf 33.9 L (60.0-200.0) Calcium 7.5 L (8.7-10.3) mg/dL Assessment and Plan Assessment: 82-year-old female admitted to the hospital with right flank pain, right-sided hydronephrosis. Evidence of narrowing at the UPJ. Underwent right-sided stent insertion 07/18, flank pain is improving -Okay for discharge from urology standpoint. already have f/u set up for 08/01 which she was advised to keep. We'll arrange for follow-up in 4-6 weeks for a right-sided ureteroscopy, possible stent removal versus exchange
== END 2022-07-20 12:50 | disposition home or self-care (01) | DRG 661 ==
LOC: EC 18:40 → 5NMEDONC 23:40
PROVIDERS: ADMIT Hospitalist; ATTEND Hospitalist
PROC: 0T768DZ Dilation of Right Ureter with Intraluminal Device, Via Natural or Artificial Opening Endoscopic (ICD-10-PCS; principal; 2022-07-18 10:25)
PROC: BT1DZZZ Fluoroscopy of Right Kidney, Ureter and Bladder (ICD-10-PCS; 2022-07-18 10:25)
DX: N13.2 Hydronephrosis with renal and ureteral calculous obstruction (principal); I12.9 Hypertensive chronic kidney disease with stage 1 through stage 4 chronic kidney disease, or unspecified chronic kidney disease; N17.9 Acute kidney failure, unspecified; N18.30 Chronic kidney disease, stage 3 unspecified; G20 Parkinson's disease; E78.5 Hyperlipidemia, unspecified; E07.9 Disorder of thyroid, unspecified; Z79.890 Hormone replacement therapy; Z86.73 Personal history of transient ischemic attack (TIA), and cerebral infarction without residual deficits; Z88.0 Allergy status to penicillin; Z79.899 Other long term (current) drug therapy
CPT/HCPCS: 36415; 74176; 80048; 80053; 81001; 82150; 83690; 85025; 96361; 96374; 96375; 96376; 99285

== ENCOUNTER → 2022-07-25 | Outpatient (CLI) | payer MEDICARE ==
--- NOTE | 2022-07-25 11:36 | XR ---
EXAMINATION TYPE: XR lumbar spine 2 or 3V DATE OF EXAM: 07/25/2022 CLINICAL HISTORY: Back and flank pain. TECHNIQUE: Frontal and lateral images of the lumbar spine are obtained. COMPARISON: Lumbar spine x-ray August 15, 2020 FINDINGS: There are 5 lumbar type vertebral bodies redemonstrated there is dextroconvex scoliosis ce ntered near the lumbosacral junction redemonstrated. There is grade 1 anterolisthesis L4 on L5 redemo nstrated. Moderate to severe disc space L5-S1 level redemonstrated. Vertebral body heights and disc s pace heights otherwise maintained. New right double-J ureter stent. There are 2 large calcifications just superior and medial to the proximal portion of the right ureter stent corresponding to retroperi toneal location on recent CT. IMPRESSION: As above.
== END | disposition home or self-care (01) ==
LOC: RADXRMAIN 11:07
PROVIDERS: ATTEND Urology
DX: M41.86 Other forms of scoliosis, lumbar region (principal); R10.9 Unspecified abdominal pain; Z46.6 Encounter for fitting and adjustment of urinary device
CPT/HCPCS: 72100

== ENCOUNTER → 2022-09-10 | Outpatient (CLI) | payer MEDICARE ==
[2022-09-10 23:10] LABS: African American GFR (CKD) 26.7 (60.0-200.0); Anion Gap 11.3 mmol/L (10.00-18.00); BUN/Creat Ratio 15.85 Ratio (12.00-20.00); Blood Urea Nitrogen 31.7 mg/dL (9.0-27.0); Calcium 9.6 mg/dL (8.7-10.3); Carbon Dioxide 25.7 mmol/L (20.0-27.5); Potassium 4.5 mmol/L (3.5-5.5)
== END | disposition home or self-care (01) ==
LOC: LABWHC1 15:20
PROVIDERS: ATTEND Internal Medicine Nephrology
DX: N18.32 Chronic kidney disease, stage 3b (principal)
CPT/HCPCS: 36415; 80048

== ENCOUNTER → 2023-01-01 | Outpatient (CLI) | payer MEDICARE ==
[2023-01-01 23:05] LABS: Appearance,Urine Clear (Clear); Bilirubin,Urine Negative (Negative); Blood,Urine Negative (Negative); Color,Urine Yellow (Yellow); Ketones,Urine Trace mg/dL (Negative); Nitrite,Urine Negative (Negative); Specific Gravity,Urine 1.016 (1.001-1.030); Urobilinogen,Urine 0.2 (0.2,1.0)
== END | disposition home or self-care (01) ==
LOC: LABWHC1 16:17
PROVIDERS: ATTEND Internal Medicine Nephrology
DX: N18.32 Chronic kidney disease, stage 3b (principal)
CPT/HCPCS: 81003; 87086

== ENCOUNTER → 2023-02-24 | Outpatient (CLI) | payer MEDICARE ==
[2023-02-24 19:36] LABS: Appearance,Urine Clear (Clear); Bilirubin,Urine Negative (Negative); Blood,Urine Negative (Negative); Color,Urine Yellow (Yellow); Ketones,Urine Trace (Negative); Nitrite,Urine Negative (Negative); PH, Urine 5.5; Specific Gravity,Urine 1.017 (1.001-1.030); Urobilinogen,Urine 0.2 E.U./DL
[2023-02-24 19:40] LABS: Bacteria,Urine None Seen (None Seen)
[2023-02-24 21:11] LABS: % Iron Saturation 15.74 (12.00-45.00); BUN/Creat Ratio 16.55 Ratio (12.00-20.00); Blood Urea Nitrogen 33.1 mg/dL (9.0-27.0); Chloride 102 mmol/L (96-109); Glucose 95 mg/dL (70-110); Iron 54 UG/DL (50-170); Magnesium 2.4 mg/dL (1.5-2.4); Phosphorus 3.5 mg/dL (2.4-5.1); Potassium 4.3 mmol/L (3.5-5.5); Sodium 142 mmol/L (135-145); Total Iron Binding Capacity 343 UG/DL (228-460); Uric Acid 5.9 mg/dL (2.9-7.7)
[2023-02-24 21:12] LABS: Albumin 4.6 d/dL (3.8-4.9); Calcium 9.5 mg/dL (8.7-10.3); Carbon Dioxide 26.7 mmol/L (21.6-31.8); Ferritin 51.3 ng/mL (10.0-291.0)
[2023-02-25 01:32] LABS: Basophils # (A) 0.04 X 10*3/uL (0.00-0.10); Basophils % (A) 0.6 %; Eosinophils # (A) 0.14 X 10*3/uL (0.04-0.35); Eosinophils % (A) 2.1 %; HCT 41.7 % (37.2-46.3); HGB 12.9 d/dL (12.0-15.0); Lymphocytes # (A) 1.17 X 10*3/uL (0.90-5.00); Lymphocytes % (A) 17.9 %; MCH 30.8 pg (27.0-32.0); MCHC 30.9 d/dL (32.0-37.0); MCV 99.5 FL (80.0-97.0); Mean Platelet Volume 12.4 FL (9.5-12.2); Monocytes # (A) 0.41 X 10*3/uL (0.20-1.00); Monocytes % (A) 6.3 %; NRBC Per 100 WBC 0 X 10*3/uL (0.00-0.01); Neutrophils # (A) 4.77 X 10*3/uL (1.80-7.70); Neutrophils % (A) 72.9 %; Platelet Count 218 X 10*3/uL (140-440); RBC 4.19 X 10*6/uL (4.10-5.20); RDW 14.8 % (11.5-14.5); WBC 6.54 X 10*3/uL (4.50-10.00)
== END | disposition home or self-care (01) ==
LOC: LABWHC1 12:29
PROVIDERS: ATTEND Internal Medicine Nephrology
DX: N25.81 Secondary hyperparathyroidism of renal origin (principal); N18.32 Chronic kidney disease, stage 3b; D63.1 Anemia in chronic kidney disease; M10.9 Gout, unspecified; N39.0 Urinary tract infection, site not specified; R80.9 Proteinuria, unspecified
CPT/HCPCS: 36415; 80048; 81001; 82040; 82043; 82306; 82570; 82728; 83540; 83550; 83735; 83970; 84100; 84550; 85025

== ENCOUNTER → 2023-04-01 | Outpatient (CLI) | payer MEDICARE ==
--- NOTE | 2023-04-01 20:35 | US ---
EXAMINATION TYPE: US kidneys/renal and bladder DATE OF EXAM: 04/01/2023 COMPARISON: NONE CLINICAL INDICATION: Female, 82 years old with history of N13.30 UNSPECIFIED HYDRONEPHROSIS; Hydronep hrosis right patient has stent from ureter to bladder. EXAM MEASUREMENTS: Right Kidney: 7.8 x 3.9 x 3.1 cm Left Kidney: 8.1 x 3.9 x 3.9 cm Right Kidney: Hydronephrosis visualized lower pole limited due to bowel gas. Left Kidney: multiple cystic areas largest upper pole 1.6 x 1.6 cm. Bladder: Anechoic Bilateral Jets seen: no left only. IMPRESSION: 1. Prominent right hydronephrosis. 2. Left renal cysts.
== END | disposition home or self-care (01) ==
LOC: RADUSWWP 13:21
PROVIDERS: ATTEND Internal Medicine Nephrology
DX: N13.30 Unspecified hydronephrosis (principal); N28.1 Cyst of kidney, acquired
CPT/HCPCS: 76770

== ENCOUNTER → 2023-05-28 | Outpatient (CLI) | payer MEDICARE ==
[~2023-05-28] MED LIST changes: -DENOSUMAB 60 MG/ML 1 ML SYRINGE SQ NR; +FUROSEMIDE 10 MG/ML 2 ML VIAL IV ONE
--- NOTE | 2023-05-29 10:02 | NM ---
INDICATION: Patient age:Female; 82 years old; Reason for study: N13.30 RIGHT HYDRONEPHROSIS; PHH. COMPARISON: Renal ultrasound 04/01/2023, CT abdomen pelvis 07/17/20222021. TECHNIQUE: 10.1 mCi of technetium 99m labeled MAG3 was administered intravenously. Dynamic posterio r perfusion images over the abdomen were obtained. This was followed by posterior functional images o btained. 20 mg of intravenous Lasix was administered 9 minutes following radiotracer injection. Quant itative analysis was performed. FINDINGS: Dynamic perfusion images demonstrate prompt accumulation of radiotracer within the left kidney with s ubsequent accumulation within the right kidney. There is excretion demonstrated within the left kidne y with continued acute ablation of radiotracer within the left kidney. Split renal function for the kidneys (uptake %): 17.6 right and 82.4 left which is abnormal. Time to peak activity: 3.5 minutes for the left kidney which is within normal limits. 30 minutes for the right kidney which is abnormal. The diuretic half-time: Left is 24.5 minutes with the right not obtained. Normal left excretion pattern. Abnormal right excretion pattern consistent with obstruction. IMPRESSION: 1. Right kidney demonstrates decreased function with obstructive pattern. 2. Normal function and excretion of the left kidney. 3. Quantitative analysis as above.
== END | disposition home or self-care (01) ==
LOC: RADNMMAIN 13:05
PROVIDERS: ATTEND Urology
DX: N13.30 Unspecified hydronephrosis (principal); N28.89 Other specified disorders of kidney and ureter
CPT/HCPCS: 78708; A9562

== ENCOUNTER → 2023-06-10 | Outpatient (CLI) | payer MEDICARE ==
[2023-06-11 03:27] LABS: % Iron Saturation 18.62 (12.00-45.00); Albumin 4.7 d/dL (3.8-4.9); BUN/Creat Ratio 19.18 Ratio (12.00-20.00); Blood Urea Nitrogen 32.6 mg/dL (9.0-27.0); Carbon Dioxide 26.9 mmol/L (21.6-31.8); Chloride 103 mmol/L (96-109); Ferritin 65.9 ng/mL (10.0-291.0); Glucose 82 mg/dL (70-110); Iron 62 UG/DL (50-170); Magnesium 2.3 mg/dL (1.5-2.4); Phosphorus 3.6 mg/dL (2.4-5.1); Potassium 4.1 mmol/L (3.5-5.5); Sodium 144 mmol/L (135-145); Total Iron Binding Capacity 333 UG/DL (228-460); Uric Acid 6.6 mg/dL (2.9-7.7)
[2023-06-11 03:53] LABS: Basophils # (A) 0.06 X 10*3/uL (0.00-0.10); Eosinophils # (A) 0.05 X 10*3/uL (0.04-0.35); Eosinophils % (A) 0.8 %; HCT 43.7 % (37.2-46.3); HGB 13.8 d/dL (12.0-15.0); MCH 31.1 pg (27.0-32.0); MCHC 31.6 d/dL (32.0-37.0); MCV 98.4 FL (80.0-97.0); Mean Platelet Volume 11.9 FL (9.5-12.2); Monocytes % (A) 6.7 %; NRBC Per 100 WBC 0 X 10*3/uL (0.00-0.01); Neutrophils # (A) 3.97 X 10*3/uL (1.80-7.70); Neutrophils % (A) 66.3 %; Platelet Count 216 X 10*3/uL (140-440); RBC 4.44 X 10*6/uL (4.10-5.20); RDW 14.7 % (11.5-14.5); WBC 5.99 X 10*3/uL (4.50-10.00)
== END | disposition home or self-care (01) ==
LOC: LABWHC1 14:33
PROVIDERS: ATTEND Internal Medicine Nephrology
DX: N18.32 Chronic kidney disease, stage 3b (principal)
CPT/HCPCS: 36415; 80048; 82040; 82043; 82306; 82570; 82728; 83540; 83550; 83735; 83970; 84100; 84550; 85025

== ENCOUNTER → 2023-07-01 | Outpatient (CLI) | payer MEDICARE | END | disposition home or self-care (01) | LOC: LABPRL 14:54 | PROVIDERS: ATTEND Internal Medicine Nephrology | DX: Z53.9 Procedure and treatment not carried out, unspecified reason (principal) ==

== ENCOUNTER → 2023-08-11 | Outpatient (CLI) | payer MEDICARE ==
--- NOTE | 2023-08-11 19:34 | NM ---
EXAMINATION TYPE: NM lasix renogram DATE OF EXAM: 08/11/2023 COMPARISON: 04/01/2023. CLINICAL INDICATION: Female, 83 years old with history of N13.30 hydronephrosis Following administration of 10 mCi Tc 99m MAG3 with 20mg Lasix. Immediate images post injection FINDINGS: Left: 87 %. Right: 13 %. Max renal flow left: 5 minutes. Max renal flow right: 10 minutes. Satisfactory accumulation of radiotracer within both renal collecting systems. After the administrati on of Lasix, there is prompt excretion from both collecting systems. T 1/2 left: 27 minutes. T 1/2 right: no calculation minutes. IMPRESSION: No significant change in the exam with poor right renal function. The uptake and excretion of the rig ht kidney is nearly nondiagnostic given poor renal function. The left kidney has a normal renogram.
== END | disposition home or self-care (01) ==
LOC: RADNMMAIN 13:09
PROVIDERS: ATTEND Urology
DX: N13.30 Unspecified hydronephrosis (principal); N28.89 Other specified disorders of kidney and ureter
CPT/HCPCS: 78708; A9562

== ENCOUNTER → 2023-08-27 | Outpatient (CLI) | payer MEDICARE ==
[~2023-08-27] MED LIST changes: +DENOSUMAB 60 MG/ML 1 ML SYRINGE SQ NR; -FUROSEMIDE 10 MG/ML 2 ML VIAL IV ONE
[2023-08-27 13:27] VITALS: BP 165/83; PULSE 50; RESP 15; TEMP 96.7
== END ==
LOC: PROCWHC3 12:46
PROVIDERS: ATTEND Family Medicine
DX: M81.0 Age-related osteoporosis without current pathological fracture (principal)
CPT/HCPCS: 96372; J0897

== ENCOUNTER → 2023-09-01 | Outpatient (CLI) | payer MEDICARE ==
--- NOTE | 2023-09-02 18:25 | BD ---
EXAMINATION TYPE: Axial Bone Density DATE OF EXAM: 09/01/2023 CLINICAL HISTORY: 83 years old Female. ICD-10 CODE: Z78.0 ASYMPTOMATIC MENOPAUSAL STATE Height: 64.25 Weight: 153.5 FRAX RISK QUESTIONS: Alcohol (3 or more units per day): no Family History (Parent hip fracture): no Glucocorticoids (More than 3mos): no (Ex: prednisone, prednisolone, methylprednisolone, dexamethasone, and hydrocortisone). History of Fracture in Adulthood: no Secondary Osteoporosis: 1. Type 1 Diabetes: no 2. Hyperthyroidism: no 3. Menopause before 45: no 4. Malnutrition: no 5. Chronic liver disease: no Rheumatoid Arthritis: no Current Tobacco Use: no RISK FACTORS HISTORY OF: Hip Fracture (Right/Left): no Spine Fracture: no History of Wrist Fracture: no Surgery to Spine/Hip(right/left)/Wrist (right/left): no Family History of Osteoporosis: no Active: no Diet low in dairy products/other sources of calcium: yes Postmenopausal woman: yes Take estrogen and/or progesterone medications: no Lost more than 2 inches in height since high school: no Frequent falls: yes Poor Health: no Hyperparathyroidism: no Adrenal Insufficiency: no MEDICATIONS: Prednisone or other steroids: no Thyroid Medications: no Osteoporosis Medications: no Additional Medications: BP Med, Vit D, Multi Vit Additional History: EXAM MEASUREMENTS: Bone mineral densitometry was performed using the invino System. Bone mineral density as measured about the Lumbar spine is: ----- L1-L4(G/cm2): 1.015 T Score Values are as follows: ----- L1: -1.3 ----- L2: -2.3 ----- L3: -1.5 ----- L4: -0.8 ----- L1-L4: -1.4 Z Score Values are as follows: ----- L1: -0.3 ----- L2: -1.3 ----- L3: -0.5 ----- L4: 0.2 ----- L1-L4: -0.4 Bone mineral density has: decreased -3.0 % since study of: 02/07/2021 Bone mineral density about the R hip (g/cm2): 0.748 Bone mineral density about the L hip (g/cm2): 0.815 T Score values are as follows: -----R Neck: -1.9 -----L Neck: -1.9 -----R Total: -2.1 -----L Total: -1.5 Z Score values are as follows: -----R Neck: -0.7 -----L Neck: -0.7 -----R Total: -1.1 -----L Total: -0.5 Bone mineral density has: decreased -1.1 % since study of: 02/07/2021 FRAX%s: The graph provided illustrates a 7.2% chance for a major osteoporotic fx and a 2.1% chance fo r the hips probability for fx in 10 years time. IMPRESSION: Osteopenia (T Score between -2.5 and -1). There is slightly increased risk of fracture and the patient may be considered for treatment. Re-Screen 2-5 years. NOTE: T-SCORE=SD OF THE YOUNG ADULT MEAN.
== END | disposition home or self-care (01) ==
LOC: RADBDWWP 13:38
PROVIDERS: ATTEND Family Medicine
DX: M85.89 Other specified disorders of bone density and structure, multiple sites (principal); Z78.0 Asymptomatic menopausal state
CPT/HCPCS: 77080

== ENCOUNTER → 2023-09-23 | Outpatient (CLI) | payer MEDICARE ==
[2023-09-24 02:40] LABS: Basophils # (A) 0.04 X 10*3/uL (0.00-0.10); Basophils % (A) 0.7 %; Eosinophils # (A) 0.07 X 10*3/uL (0.04-0.35); Eosinophils % (A) 1.3 %; HCT 43.3 % (37.2-46.3); HGB 13.6 g/dL (12.0-15.0); Lymphocytes # (A) 1.49 X 10*3/uL (0.90-5.00); Lymphocytes % (A) 26.8 %; MCH 30.3 pg (27.0-32.0); MCHC 31.4 g/dL (32.0-37.0); MCV 96.4 FL (80.0-97.0); Mean Platelet Volume 11.4 FL (9.5-12.2); Monocytes # (A) 0.29 X 10*3/uL (0.20-1.00); Monocytes % (A) 5.2 %; NRBC Per 100 WBC 0 X 10*3/uL (0.00-0.01); Neutrophils # (A) 3.64 X 10*3/uL (1.80-7.70); Neutrophils % (A) 65.6 %; Platelet Count 233 X 10*3/uL (140-440); RBC 4.49 X 10*6/uL (4.10-5.20); RDW 14.8 % (11.5-14.5); WBC 5.55 X 10*3/uL (4.50-10.00)
[2023-09-24 03:10] LABS: BUN/Creat Ratio 12.31 Ratio (12.00-20.00); Blood Urea Nitrogen 19.7 mg/dL (9.0-27.0); Calcium 8.7 mg/dL (8.7-10.3); Carbon Dioxide 26.6 mmol/L (21.6-31.8); Chloride 103 mmol/L (96-109); Glucose 109 mg/dL (70-110); Potassium 4.3 mmol/L (3.5-5.5); Sodium 142 mmol/L (135-145)
== END | disposition home or self-care (01) ==
LOC: LABWHC1 15:18
PROVIDERS: ATTEND Internal Medicine Nephrology
DX: N25.81 Secondary hyperparathyroidism of renal origin (principal); N18.32 Chronic kidney disease, stage 3b; D63.1 Anemia in chronic kidney disease; E55.9 Vitamin D deficiency, unspecified
CPT/HCPCS: 36415; 80048; 82306; 83970; 85025

== ENCOUNTER 2023-11-13 17:54 | Emergency (ER) | payer MEDICARE ==
[2023-11-13 18:09] VITALS: RESP 16; TEMP 97.8
[2023-11-13 18:41] VITALS: BP 155/81; PULSE 62
--- NOTE | 2023-11-13 19:27 | CT ---
EXAMINATION TYPE: CT brain cspine wo con CT DLP: 1247.5 mGycm, Automated exposure control for dose reduction was used. DATE OF EXAM: 11/13/2023 6:36 PM COMPARISON: None. CLINICAL INDICATION:Female, 83 years old with history of fall; Fall. TECHNIQUE: Brain: Multiple axial CT images of the brain were obtained without IV contrast. Cspine: Axial CT images from the skull base to the inferior aspect of T2 we obtained without intraven ous contrast. Coronal and sagittal reformatted images were also reviewed. FINDINGS: Brain: Extra-axial spaces: No abnormal extra-axial fluid collections. Ventricular system: Appear dilated in proportion to the degree of cerebral atrophy. Cerebral parenchyma: No increased attenuation to suggest acute intraparenchymal hemorrhage. The gra y-white matter interface appears maintained. Mild/moderate generalized brain atrophy. Scattered hyp oattenuating areas are seen within the cerebral white matter, nonspecific but most often seen with ch ronic microvascular ischemic changes; mild/moderate in degree. Cerebellum: No acute abnormality. Mass effect: No evidence of mass effect or midline shift. Intracranial vasculature: Atherosclerotic calcifications of the larger arteries near the skull base. Soft tissues: No acute or significant abnormality. Visualized orbits: Orbital contents appear grossly intact. Postoperative changes of the bilateral g lobes. Calvarium/osseous structures: No evidence of calvarial fracture. Paranasal sinuses and mastoid air cells: Mucosal thickening in the inferior right frontal sinus, othe rwise clear. Mastoid air cells are somewhat sclerotic, chronic in appearance. MRI is more sensitive for detecting acute processes such as infarct, and may be considered if clinica lly warranted. Cervical spine: Fracture: None seen. Osseous structures, spinal canal/neural foramina: Mild osseous demineralization. No other such blasti c lesion. Craniocervical junction is intact. Degenerative changes of the CC junction and anterior C1- C2 articulation. Mild retrodental soft tissue tissue with flat calcification, mildly narrowing the an terior aspect of the spinal canal. There is mild/moderate multilevel degenerative disk disease and fa cet arthrosis throughout the cervical spine. This appears greatest at C3-C4 where there is significan t disc space narrowing, heterogeneous endplate sclerosis, and small to moderate posterior disc osteop hyte complex. Mild facet arthrosis. There is mild to moderate canal and bilateral neural foraminal st enosis at this level. Milder narrowings at other levels. Vertebral alignment: No traumatic malalignment. Straightening with mild reversal of the normal cervic al lordosis from C2 to C6, probably degenerative but may be exacerbated by muscular spasm or position ing. Neck soft tissues: No acute finding.. Calcifications noted involving the cervical carotid arteries mo stly in the bifurcation regions, left worse than right.. Other: Lung apices show no acute infiltrate or pneumothorax. Scarring and senescent changes, small c alcified granuloma in the right lung apex. IMPRESSION: CT head: 1. No acute intracranial CT abnormality. 2. Mild/moderate atrophy and chronic microvascular ischemic changes. CT cervical spine: 1. No evidence of acute cervical spine fracture or traumatic malalignment. 2. Mild/moderate cervical spondylosis.
[2023-11-13] MEDS: ACETAMINOPHEN TAB 325 MG TAB PO STA (19:41)
--- NOTE | 2023-11-13 19:44 | ED ---
Fall HPI - General Chief Complaint: Fall Stated Complaint: Fall Time Seen by Provider: 11/13/23 18:08 Source: patient Mode of arrival: ambulatory - History of Present Illness Initial Comments: 83-year-old female with history of Parkinson's and hypertension presenting for evaluation after a fall. She states that 2 days ago she fell from standing. She fell forward and hit her head on the ground. No loss of consciousness or blood thinners. Today she was experiencing a headache over the region that she hit which prompted her to report to the ER. She is having no neck pain, nausea, vomiting, dizziness, vision or hearing changes, numbness, tingling, weakness. She has no other injuries. No chest pain or difficulty breathing. - Related Data Home Medications Medication Instructions Recorded Confirmed Levothyroxine Sodium 88 mcg PO DAILY 05/30/21 08/27/23 amantadine HCL [Amantadine] 100 mg PO DAILY 05/30/21 08/27/23 Carbidopa-Levodopa ER 50-200Mg 1 tab PO TID@1100,1500,1900 07/18/22 08/27/23 [Sinemet CR 50-200 mg] Ergocalciferol [Vitamin D2 (1250 1,250 mcg PO QMONTHLY 07/18/22 08/27/23 Mcg = 37803 Iu)] Losartan Potassium 25 mg PO BID 07/18/22 08/27/23 Metoprolol Tartrate [Lopressor] 12.5 mg PO HS 07/18/22 08/27/23 Simvastatin [Zocor] 20 mg PO HS 07/18/22 08/27/23 calcitrioL [Rocaltrol] 0.25 mcg PO MO 07/18/22 08/27/23 Allergies Allergy/AdvReac Type Severity Reaction Status Date / Time Penicillins Allergy Rash/Hives Verified 11/13/23 18:06 Review of Systems ROS Statement: Those systems with pertinent positive or pertinent negative responses have been documented in the HPI. ROS Other: All systems not noted in ROS Statement are negative. Past Medical History Past Medical History: Hypertension, Thyroid Disorder Additional Past Medical History / Comment(s): Parkinsons, TIA History of Any Multi-Drug Resistant Organisms: None Reported Past Surgical History: Orthopedic Surgery Past Anesthesia/Blood Transfusion Reactions: No Reported Reaction Past Psychological History: No Psychological Hx Reported Smoking Status: Never smoker General Exam Limitations: no limitations General appearance: alert, in no apparent distress Head exam: Present: atraumatic, normocephalic Eye exam: Present: normal appearance, PERRL, EOMI Pupils: Present: normal accommodation Neck exam: Present: normal inspection, full ROM. Absent: tenderness Respiratory exam: Present: normal lung sounds bilaterally. Absent: respiratory distress, wheezes, rales, rhonchi, stridor Cardiovascular Exam: Present: regular rate, normal rhythm, normal heart sounds. Absent: systolic murmur, diastolic murmur, rubs, gallop, clicks Extremities exam: Present: normal inspection, full ROM Neurological exam: Present: alert, oriented X3 Expanded Patient oriented to: Present: person, place, time Speech: Present: fluid speech Cranial nerves: EOM's Intact: Normal Motor strength exam: RUE: 5, LUE: 5, RLE: 5, LLE: 5 Eye Response: (4) open spontaneously Motor Response: (6) obeys commands Verbal Response: (5) oriented [place] Total: 15 Psychiatric exam: Present: normal affect, normal mood Skin exam: Present: warm, dry Course Vital Signs 11/13/23 11/13/23 18:03 18:22 Temperature 97.8 F Pulse Rate 71 62 Respiratory 16 Rate Blood Pressure 160/96 155/81 O2 Sat by Pulse 100 Oximetry Medical Decision Making - Medical Decision Making Was pt. sent in by a medical professional or institution ([facility], ATMOSPHERIC SCIENTIST, urgent care, hospital, or snf...) When possible be specific @ -No Did you speak to anyone other than the patient for history (EMS, parent, family, police, friend...)? What history was obtained from this source @ -No Did you review nursing and triage notes (agree or disagree)? Why? @ -I reviewed and agree with nursing and triage notes Were old charts reviewed (outside hosp., previous admission, EMS record, old EKG, old radiological studies, urgent care reports/EKG's, snf records)? Report findings @ -No old charts were reviewed Differential Diagnosis (chest pain, altered mental status, abdominal pain women, abdominal pain men, vaginal bleeding, weakness, fever, dyspnea, syncope, headache, dizziness, GI bleed, back pain, seizure, CVA, palpatations, mental health, musculoskeletal)? @ -Differential includes uncomplicated head injury, concussion, intracranial hemorrhage, fracture, this is not an all-inclusive list EKG interpreted by me (3pts min.). @ -As above X-rays interpreted by me (1pt min.). @ -None done CT interpreted by me (1pt min.). @ -CT of the brain and cervical spine shows no acute intracranial abnormality. Mild to moderate atrophy and chronic microvascular ischemic changes. No evidence of acute cervical spine fracture or traumatic malalignment. Mild/moderate cervical spondylosis. U/S interpreted by me (1pt. min.). @ -None done What testing was considered but not performed or refused? (CT, X-rays, U/S, labs)? Why? @ -None What meds were considered but not given or refused? Why? @ -None Did you discuss the management of the patient with other professionals (professionals i.e. , PA, ATMOSPHERIC SCIENTIST, lab, RT, psych nurse, social service director, sunglass clip attacher, teacher, foreign service officer, caseworker intake)? Give summary @ -No Was smoking cessation discussed for >3mins.? @ -No Was critical care preformed (if so, how long)? @ -No Were there social determinants of health that impacted care today? How? (Homelessness, low income, unemployed, alcoholism, drug addiction, transportation, low edu. Level, literacy, decrease access to med. care, [facility], rehab)? @ -No Was there de-escalation of care discussed even if they declined (Discuss DNR or withdrawal of care, Hospice)? DNR status @ -No What co-morbidities impacted this encounter? (DM, HTN, Smoking, COPD, CAD, Cancer, CVA, ARF, Chemo, Hep., AIDS, mental health diagnosis, sleep apnea, morbid obesity)? @ -None Was patient admitted / discharged? Hospital course, mention meds given and route, prescriptions, significant lab abnormalities, going to OR and other pertinent info. @ -83-year-old female presenting for evaluation post head injury. Patient fell forward hitting her head 2 days ago. No loss of consciousness or blood thinners. Today she has a mild headache. History and physical exam are conducted. No focal neurological deficits and GCS is 15. Negative CT of the brain and cervical spine. Discharged home. Follow-up with PCP. Report back to ER with any new or worsening symptoms. Discussed return parameters and answered all questions. Patient conveyed verbal understanding and agreed to the plan. I discussed this case in detail with my attending Dr. Silver Undiagnosed new problem with uncertain prognosis? @ -No Drug Therapy requiring intensive monitoring for toxicity (Heparin, Nitro, Insulin, Cardizem)? @ -No Were any procedures done? @ -No Diagnosis/symptom? @ -Head injury Acute, or Chronic, or Acute on Chronic? @ -Acute Uncomplicated (without systemic symptoms) or Complicated (systemic symptoms)? @ -Uncomplicated Side effects of treatment? @ -No Exacerbation, Progression, or Severe Exacerbation? @ -No Poses a threat to life or bodily function? How? (Chest pain, [place], [place], pneumonia, PE, COPD, DKA, ARF, appy, cholecystitis, CVA, Diverticulitis, Homicidal, Suicidal, threat to staff... and all critical care pts) @ -No Disposition Clinical Impression: Head injury Disposition: HOME SELF-CARE Condition: Good Instructions (If sedation given, give patient instructions): Head Injury (ED) Additional Instructions: Follow-up with PCP. Report back to ER with any new or worsening symptoms. Is patient prescribed a controlled substance at d/c from ED?: No Referrals: Duane Garcia DO [Primary Care Provider] - 1-2 days Time of Disposition: 19:44
== END 2023-11-13 19:49 | disposition home or self-care (01) ==
LOC: EC 17:54
DX: S09.90XA Unspecified injury of head, initial encounter (principal); M47.812 Spondylosis without myelopathy or radiculopathy, cervical region; I67.82 Cerebral ischemia; I10 Essential (primary) hypertension; Z79.899 Other long term (current) drug therapy; Z88.0 Allergy status to penicillin; Z86.73 Personal history of transient ischemic attack (TIA), and cerebral infarction without residual deficits; W18.30XA Fall on same level, unspecified, initial encounter; Y92.009 Unspecified place in unspecified non-institutional (private) residence as the place of occurrence of the external cause
CPT/HCPCS: 70450; 72125; 99284

== ENCOUNTER → 2023-11-13 | Outpatient (CLI) | payer MEDICARE ==
[2023-11-14 02:16] LABS: BUN/Creat Ratio 17.35 Ratio (12.00-20.00); Blood Urea Nitrogen 29.5 mg/dL (9.0-27.0); Calcium 9.7 mg/dL (8.7-10.3); Carbon Dioxide 28.6 mmol/L (21.6-31.8); Chloride 103 mmol/L (96-109); Glucose 116 mg/dL (70-110); Potassium 3.8 mmol/L (3.5-5.5); Sodium 144 mmol/L (135-145)
== END | disposition home or self-care (01) ==
LOC: LABWHC1 15:28
PROVIDERS: ATTEND Internal Medicine Nephrology
DX: N18.32 Chronic kidney disease, stage 3b (principal)
CPT/HCPCS: 36415; 80048

== ENCOUNTER → 2024-02-10 | Outpatient (CLI) | payer MEDICARE ==
[2024-02-10 18:25] LABS: Basophils # (A) 0.06 X 10*3/uL (0.00-0.10); Basophils % (A) 1.3 %; Eosinophils # (A) 0.09 X 10*3/uL (0.04-0.35); HCT 41.4 % (37.2-46.3); HGB 12.9 g/dL (12.0-15.0); Immature Grans, Automated 0 %; Lymphocytes # (A) 1.44 X 10*3/uL (0.90-5.00); Lymphocytes % (A) 31.5 %; MCH 30.5 pg (27.0-32.0); MCHC 31.2 g/dL (32.0-37.0); MCV 97.9 FL (80.0-97.0); Mean Platelet Volume 11.7 FL (9.5-12.2); Monocytes % (A) 6.6 %; NRBC Per 100 WBC 0 X 10*3/uL (0.00-0.01); Neutrophils # (A) 2.68 X 10*3/uL (1.80-7.70); Neutrophils % (A) 58.6 %; Platelet Count 223 X 10*3/uL (140-440); RBC 4.23 X 10*6/uL (4.10-5.20); RDW 13.8 % (11.5-14.5); WBC 4.57 X 10*3/uL (4.50-10.00)
[2024-02-10 21:12] LABS: Albumin 4.7 g/dL (3.8-4.9); BUN/Creat Ratio 14.47 Ratio (12.00-20.00); Blood Urea Nitrogen 24.6 mg/dL (9.0-27.0); Carbon Dioxide 26.4 mmol/L (21.6-31.8); Chloride 104 mmol/L (96-109); Ferritin 71.5 ng/mL (10.0-291.0); Glucose 117 mg/dL (70-110); Iron 84 UG/DL (50-170); Magnesium 2.5 mg/dL (1.5-2.4); Phosphorus 3.3 mg/dL (2.4-5.1); Potassium 3.7 mmol/L (3.5-5.5); Sodium 143 mmol/L (135-145); Total Iron Binding Capacity 332 UG/DL (228-460); Uric Acid 5.4 mg/dL (2.9-7.7)
[2024-02-11 02:14] LABS: Appearance,Urine Clear (Clear); Bilirubin,Urine Negative (Negative); Blood,Urine Negative (Negative); Color,Urine Yellow (Yellow); Ketones,Urine Trace (Negative); Nitrite,Urine Negative (Negative); PH, Urine 6.5; Specific Gravity,Urine 1.016 (1.001-1.030)
[2024-02-11 02:19] LABS: Bacteria,Urine None Seen (None Seen)
== END | disposition home or self-care (01) ==
LOC: LABWHC1 16:09
PROVIDERS: ATTEND Internal Medicine Nephrology
DX: N18.32 Chronic kidney disease, stage 3b (principal); E55.9 Vitamin D deficiency, unspecified; N25.81 Secondary hyperparathyroidism of renal origin; M10.9 Gout, unspecified; D63.1 Anemia in chronic kidney disease; R80.9 Proteinuria, unspecified
CPT/HCPCS: 36415; 80048; 81001; 82040; 82043; 82306; 82570; 82728; 83540; 83550; 83735; 83970; 84100; 84550; 85025

== ENCOUNTER → 2024-03-04 | Outpatient (CLI) | payer MEDICARE ==
[2024-03-04 14:32] VITALS: BP 146/74; PULSE 71; RESP 16; TEMP 97.5
[2024-03-04] MEDS: DENOSUMAB 60 MG/ML 1 ML SYRINGE SQ NR (14:33)
== END ==
LOC: PROCWHC3 14:25
PROVIDERS: ATTEND Family Medicine
DX: M81.0 Age-related osteoporosis without current pathological fracture (principal)
CPT/HCPCS: 96372; J0897

== ENCOUNTER → 2024-03-18 | Outpatient (CLI) | payer MEDICARE ==
--- NOTE | 2024-04-13 12:22 | MM ---
Reason for Exam: Screening (asymptomatic). Last mammogram was performed 15 year(s) and 9 month(s) ago. Patient History: Menarche at age 14. First Full-Term at age 26. Postmenopausal. Benign Excisional Biopsy on the left side. Sister had breast cancer, age 50. Sister had breast cancer, age 50. Risk Values: Dinah 5 year model risk: 4.0%. NCI Lifetime model risk: 5.8%. Prior Study Comparison: 01/28/2006 Bilateral Screening Mammogram, [facility]. 06/02/2007 Bilateral Screening Mammogram, [facility]. 06/21/2008 Bilateral Screening Mammogram, [facility]. Tissue Density: The breasts are heterogeneously dense, which may obscure small masses. Findings: Analyzed By CAD. Right breast: There is no suspicious group of microcalcifications or new suspicious mass. Left breast: There is no suspicious group of microcalcifications or new suspicious mass. Overall Assessment: Negative, BI-RAD 1 Management: Screening Mammogram of both breasts in [address] [facility] will attempt to contact patient to return for supplemental views and ultrasound if indicated. Patient should continue monthly self-breast exams. A clinical breast exam by your physician is recommended on an annual basis. This exam should not preclude additional follow-up of suspicious palpable abnormalities. Note on Dinah scores and lifetime risk: 1. A Dinah score greater than 3% is considered moderate risk. If this is the case, consider specialist referral to assess eligibility for a risk reducing agent. 2. If overall lifetime risk for the development of breast cancer is 20% or higher, the patient may qualify for future screening with alternating mammogram and breast MRI. Electronically signed and approved by: Stone Dawson DO
== END | disposition home or self-care (01) ==
LOC: RADMAMWWP 15:32
PROVIDERS: ATTEND Family Medicine
DX: Z12.31 Encounter for screening mammogram for malignant neoplasm of breast (principal); R92.333 Mammographic heterogeneous density, bilateral breasts; Z78.0 Asymptomatic menopausal state; Z80.3 Family history of malignant neoplasm of breast
CPT/HCPCS: 77063; 77067

== ENCOUNTER → 2024-04-27 | Outpatient (CLI) | payer MEDICARE ==
--- NOTE | 2024-04-27 15:37 | MR ---
EXAMINATION TYPE: MR iac wo/w con DATE OF EXAM: 04/27/2024 3:29 PM CLINICAL INDICATION: Female, 83 years old with history of H90.42 SNSRNRL HEAR LOSS, UNI, LEFT EAR, W UNRESTR; PHH, left sided hearing loss. COMPARISON: 02/09/2019 TECHNIQUE: Multi planar, multi sequence imaging was performed through the brain. Specialized thin s equences were obtained through the internal auditory canals. Pre-and post gadolinium sequences were obtained. MR contrast: IV Contrast: 7 cc Gadavist FINDINGS: The generalized atrophy . Proportional dilation of the ventricular system. Anton-white junctions, eriberto tricular system, and cisterns appear unremarkable. Scattered foci of high T2 signal intensity are se en within the periventricular white matter. Midline structures show no abnormality. Diffusion-weighte d imaging shows no evidence of restricted diffusion. The susceptibility weighted images do not reveal any evidence for micro-hemorrhage. The bone marrow signal is within normal limits. Paranasal sinuses and mastoid air cells: Mild scattered paranasal sinus disease. Trace high T2 signal seen within the mastoid air cells. Visualized orbits: Bilateral aphakia After administration of gadolinium, no abnormal enhancement is seen. The internal auditory canal sequences demonstrate no significant irregularity. The 7th cranial nerve s, 8 cranial nerves, and cerebellar pontine angles appear unremarkable. After the administration anitha olinium, no abnormal enhancement is seen within the internal auditory canals. Vascular loop: None. IMPRESSION: 1. No evidence of intracranial mass nor acute/subacute CVA. 2. No evidence of internal auditory canal abnormality. 3. Nonspecific white matter changes, likely secondary to small vessel ischemic disease. 4. Trace mastoid air cell effusions.
== END | disposition home or self-care (01) ==
LOC: RADMRIMAIN 14:27
PROVIDERS: ATTEND Nurse Practitioner Family
DX: H90.42 Sensorineural hearing loss, unilateral, left ear, with unrestricted hearing on the contralateral side (principal); J34.89 Other specified disorders of nose and nasal sinuses; R90.82 White matter disease, unspecified; H27.03 Aphakia, bilateral
CPT/HCPCS: 70553; A9585

== ENCOUNTER → 2024-05-11 | Outpatient (CLI) | payer MEDICARE ==
[2024-05-12 04:19] LABS: Appearance,Urine Clear (Clear); Bilirubin,Urine Negative (Negative); Blood,Urine Negative (Negative); Color,Urine Yellow (Yellow); Ketones,Urine Negative (Negative); Nitrite,Urine Negative (Negative); PH, Urine 5.5; Specific Gravity,Urine 1.019 (1.001-1.030); Urobilinogen,Urine 0.2 E.U./DL
[2024-05-12 04:29] LABS: Bacteria,Urine None Seen (None Seen)
== END | disposition home or self-care (01) ==
LOC: LABWHC1 14:28
PROVIDERS: ATTEND Internal Medicine Nephrology
DX: N18.32 Chronic kidney disease, stage 3b (principal)
CPT/HCPCS: 81001

== ENCOUNTER → 2024-06-17 | Outpatient (CLI) | payer MEDICARE ==
[2024-06-18 02:28] LABS: Basophils # (A) 0.03 X 10*3/uL (0.00-0.10); Basophils % (A) 0.6 %; Eosinophils # (A) 0.08 X 10*3/uL (0.04-0.35); Eosinophils % (A) 1.5 %; HCT 39.2 % (37.2-46.3); HGB 12.5 g/dL (12.0-15.0); Immature Grans, Automated 0 %; Lymphocytes # (A) 1.26 X 10*3/uL (0.90-5.00); Lymphocytes % (A) 23.3 %; MCH 30.7 pg (27.0-32.0); MCHC 31.9 g/dL (32.0-37.0); MCV 96.3 FL (80.0-97.0); Mean Platelet Volume 11.9 FL (9.5-12.2); Monocytes # (A) 0.42 X 10*3/uL (0.20-1.00); Monocytes % (A) 7.8 %; NRBC Per 100 WBC 0 X 10*3/uL (0.00-0.01); Neutrophils # (A) 3.62 X 10*3/uL (1.80-7.70); Neutrophils % (A) 66.8 %; Platelet Count 210 X 10*3/uL (140-440); RBC 4.07 X 10*6/uL (4.10-5.20); RDW 13.9 % (11.5-14.5); WBC 5.41 X 10*3/uL (4.50-10.00)
[2024-06-18 02:31] LABS: Appearance,Urine Clear (Clear); Bilirubin,Urine Negative (Negative); Blood,Urine Negative (Negative); Color,Urine Yellow (Yellow); Ketones,Urine Trace (Negative); Nitrite,Urine Negative (Negative); PH, Urine 6.5; Specific Gravity,Urine 1.017 (1.001-1.030)
[2024-06-18 02:38] LABS: Bacteria,Urine None Seen (None Seen)
[2024-06-18 03:42] LABS: Ferritin 93.8 ng/mL (10.0-291.0)
[2024-06-18 03:57] LABS: % Iron Saturation 23.82 (12.00-45.00); Iron 81 UG/DL (50-170); Total Iron Binding Capacity 340 UG/DL (228-460); Uric Acid 6.2 mg/dL (2.9-7.7)
[2024-06-18 04:03] LABS: Magnesium 2.4 mg/dL (1.5-2.4)
[2024-06-18 04:04] LABS: Albumin 4.4 g/dL (3.8-4.9); BUN/Creat Ratio 17.44 Ratio (12.00-20.00); Blood Urea Nitrogen 31.4 mg/dL (9.0-27.0); Calcium 9.6 mg/dL (8.7-10.3); Carbon Dioxide 25.7 mmol/L (21.6-31.8); Chloride 104 mmol/L (96-109); Glucose 107 mg/dL (70-110); Phosphorus 4.3 mg/dL (2.4-5.1); Potassium 4.2 mmol/L (3.5-5.5); Sodium 144 mmol/L (135-145)
== END | disposition home or self-care (01) ==
LOC: LABWHC1 15:42
PROVIDERS: ATTEND Internal Medicine Nephrology
DX: E55.9 Vitamin D deficiency, unspecified (principal); N25.81 Secondary hyperparathyroidism of renal origin; M10.9 Gout, unspecified; N39.0 Urinary tract infection, site not specified; N18.32 Chronic kidney disease, stage 3b; D63.1 Anemia in chronic kidney disease
CPT/HCPCS: 36415; 80048; 81001; 82040; 82043; 82306; 82570; 82728; 83540; 83550; 83735; 83970; 84100; 84550; 85025

== ENCOUNTER → 2024-12-06 | Outpatient (CLI) | payer MEDICARE ==
[2024-12-06 14:40] VITALS: BP 172/81; PULSE 62; RESP 15; TEMP 97.4
[2024-12-06] MEDS: DENOSUMAB 60 MG/ML 1 ML SYRINGE SQ NR (14:41)
== END ==
LOC: PROCWHC3 14:18
PROVIDERS: ATTEND Family Medicine
DX: M81.0 Age-related osteoporosis without current pathological fracture (principal)
CPT/HCPCS: 96372; J0897

== ENCOUNTER → 2024-12-27 | Outpatient (CLI) | payer MEDICARE | END | disposition home or self-care (01) | LOC: RADMAMWWP 14:10 | PROVIDERS: ATTEND Family Medicine | DX: Z53.9 Procedure and treatment not carried out, unspecified reason (principal) ==